=== PATIENT | female | born 1945 | race African-American/Black ===

== ENCOUNTER → 2016-04-24 | Outpatient (CLI) | payer MEDICARE ==
--- NOTE | 2016-04-25 09:49 | MM ---
Reason for exam: screening (asymptomatic). Last mammogram was performed 1 year ago. History: Patient is postmenopausal. Family history of premenopausal breast cancer in sister at age 19. Benign excisional biopsy of the left breast, January 17, 2001. Took estrogen for 10 years. Physical Findings: A clinical breast exam by your physician is recommended on an annual basis and results should be correlated with mammographic findings. MG 3D Screening Mammo W/Cad Bilateral CC and MLO view(s) were taken. Prior study comparison: April 12, 2015, left breast MG work up mamm w CAD LT. March 31, 2015, bilateral MG screening mammo w CAD. The breast tissue is heterogeneously dense. This may lower the sensitivity of mammography. Benign calcifications. There is no discrete abnormality. No significant changes when compared with prior studies. ASSESSMENT: Benign, BI-RAD 2 RECOMMENDATION: Routine screening mammogram of both breasts in 1 year.
== END | disposition home or self-care (01) ==
LOC: RADMAMWWP 07:56
PROVIDERS: ATTEND Family Medicine
DX: Z12.31 Encounter for screening mammogram for malignant neoplasm of breast (principal)
CPT/HCPCS: 77063; G0202

== ENCOUNTER → 2017-01-09 | Outpatient (CLI) | payer MEDICARE ==
[2017-01-09 10:05] LABS: EKG EKG PERFORMED
[2017-01-09 10:27] LABS: Basophils % (A) 1 %; CHCM 30.9; Eosinophils # (A) 0.1 k/uL (0-0.7); Eosinophils % (A) 1 %; HCT 39.8 % (34.0-46.0); HDW 2.21; Hypochromasia Slight; Luc # (Auto) 0.13; Luc % (Auto) 3; Lymphocytes # (A) 1.4 k/uL (1.0-4.8); Lymphocytes % (A) 38 %; MCH 31.9 pg (25.0-35.0); MCHC 32.7 g/dL (31.0-37.0); MCV 97.7 fL (80.0-100.0); Mean Platelet Volume 6.7; Monocytes # (A) 0.4 k/uL (0-1.0); Monocytes % (A) 10 %; Neutrophils # (A) 1.8 k/uL (1.3-7.7); Neutrophils % (A) 46 %; RBC 4.07 m/uL (3.80-5.40); RDW 13.4 % (11.5-15.5); WBC 3.8 k/uL (3.8-10.6); WBC (Perox) 3.97
[2017-01-09 10:34] LABS: Prothrombin Time 10.5 sec (9.0-12.0)
[2017-01-09 10:49] LABS: Anion Gap 9 mmol/L; Blood Urea Nitrogen 25 mg/dL (7-17); Calcium 9.3 mg/dL (8.4-10.2); Carbon Dioxide 25 mmol/L (22-30); Chloride 105 mmol/L (98-107); Glucose 77 mg/dL (74-99); Non-African American GFR(MDRD) >60 (>60 ml/min/1.73 sqM); Sodium 139 mmol/L (137-145)
== END | disposition home or self-care (01) ==
LOC: LABWHC1 09:08
PROVIDERS: ATTEND Family Medicine
DX: I10 Essential (primary) hypertension (principal)
CPT/HCPCS: 36415; 80048; 85025; 85610; 85730; 93005

== ENCOUNTER → 2017-02-26 | Outpatient (CLI) | payer MEDICARE ==
[2017-02-26 11:44] LABS: CHCM 30.9; HCT 39.3 % (34.0-46.0); HGB 12.1 gm/dL (11.4-16.0); MCHC 30.8 g/dL (31.0-37.0); MCV 94.3 fL (80.0-100.0); Mean Platelet Volume 7.4; RBC 4.17 m/uL (3.80-5.40); RDW 14.4 % (11.5-15.5)
[2017-02-26 11:52] LABS: Anion Gap 9 mmol/L; Blood Urea Nitrogen 26 mg/dL (7-17); Carbon Dioxide 25 mmol/L (22-30); Chloride 103 mmol/L (98-107); Non-African American GFR(MDRD) >60 (>60 ml/min/1.73 sqM); Potassium 4.5 mmol/L (3.5-5.1); Sodium 137 mmol/L (137-145)
== END | disposition home or self-care (01) ==
LOC: LABWHC1 11:11
PROVIDERS: ATTEND Internal Medicine Interventional Cardiology
DX: Z01.818 Encounter for other preprocedural examination (principal); I25.10 Atherosclerotic heart disease of native coronary artery without angina pectoris
CPT/HCPCS: 36415; 80051; 82565; 84520; 85027

== ENCOUNTER → 2017-05-27 | Outpatient (CLI) | payer MEDICARE ==
--- NOTE | 2017-05-28 12:10 | MM ---
Reason for exam: screening (asymptomatic). Last mammogram was performed 1 year and 1 month ago. History: Patient is postmenopausal. Family history of premenopausal breast cancer in sister at age 19. Benign excisional biopsy of the left breast, January 17, 2001. Took estrogen for 10 years. Physical Findings: A clinical breast exam by your physician is recommended on an annual basis and results should be correlated with mammographic findings. MG 3D Screening Mammo W/Cad Bilateral CC and MLO view(s) were taken. Prior study comparison: April 24, 2016, bilateral MG 3d screening mammo w/cad. April 12, 2015, left breast MG work up mamm w CAD LT. The breast tissue is heterogeneously dense. This may lower the sensitivity of mammography. There is a new 3mm mass in the right upper outer quadrant at middle depth and 3mm asymmetry just superior on the MLO view only. Benign calcifications bilaterally. No suspicious abnormality on the left. ASSESSMENT: Incomplete: need additional imaging evaluation, BI-RAD 0 RECOMMENDATION: Special view mammogram of the right breast. If lesion persists on supplemental views, image directed ultrasound is recommended. [facility] will attempt to contact patient to return for supplemental views and ultrasound if indicated.
== END | disposition home or self-care (01) ==
LOC: RADMAMWWP 09:03
PROVIDERS: ATTEND Family Medicine
DX: Z12.31 Encounter for screening mammogram for malignant neoplasm of breast (principal)
CPT/HCPCS: 77063; 77067

== ENCOUNTER → 2017-06-06 | Outpatient (CLI) | payer MEDICARE ==
--- NOTE | 2017-06-06 10:30 | MM ---
Reason for exam: additional evaluation requested from abnormal screening. Last mammogram was performed less than 1 month ago. History: Patient is postmenopausal. Family history of premenopausal breast cancer in sister at age 19. Benign excisional biopsy of the left breast, January 17, 2001. Took estrogen for 10 years. Physical Findings: Nurse Summary: There is a 1 x 1.5cm nodule in the right breast at 11 O'clock (nurse ts). MG 3D Work Up W/Cad RT CC, MLO, ML, spot compression CC, and spot compression MLO view(s) were taken of the right breast. Prior study comparison: May 27, 2017, bilateral MG 3d screening mammo w/cad. There are scattered fibroglandular densities. There is no dominant lesion. No significant new findings when compared with previous films. These results were verbally communicated with the patient and result sheet given to the patient on 06/06/17. ASSESSMENT: Incomplete: need additional imaging evaluation, BI-RAD 0 RECOMMENDATION: Ultrasound of the right breast. [facility] will attempt to contact patient to return for ultrasound.
--- NOTE | 2017-06-06 10:34 | USB ---
Reason for exam: additional evaluation requested from abnormal screening. History: Patient is postmenopausal. Family history of premenopausal breast cancer in sister at age 19. Benign excisional biopsy of the left breast, January 17, 2001. Took estrogen for 10 years. US Breast Workup Limited RT Right breast ultrasound demonstrates no cystic or solid lesion seen. These results were verbally communicated with the patient and result sheet given to the patient on 06/06/17. ASSESSMENT: Negative, BI-RAD 1 RECOMMENDATION: Routine screening mammogram of both breasts in 1 year. Manage patient on a clinical basis.
== END | disposition home or self-care (01) ==
LOC: RADMAMWWP 08:38
PROVIDERS: ATTEND Family Medicine
DX: R92.8 Other abnormal and inconclusive findings on diagnostic imaging of breast (principal)
CPT/HCPCS: 77065; 76642; G0279

== ENCOUNTER → 2017-07-12 | Outpatient (CLI) | payer MEDICARE ==
[2017-07-12 10:59] LABS: Cholesterol 197 mg/dL (<200); HDL Cholesterol 65 mg/dL (40-60); LDL Cholesterol,Calculated 118 mg/dL (0-99); Triglycerides 69 mg/dL (<150)
== END | disposition home or self-care (01) ==
LOC: LABWHC1 10:17
PROVIDERS: ATTEND Family Medicine
DX: E78.2 Mixed hyperlipidemia (principal)
CPT/HCPCS: 36415; 80061

== ENCOUNTER → 2018-01-27 | Outpatient (CLI) | payer MEDICARE ==
[2018-01-27 20:02] LABS: T4, Free (Free Thyroxine) 1.4 ng/dL (0.80-1.80)
== END | disposition home or self-care (01) ==
LOC: LABWHC1 11:47
PROVIDERS: ATTEND Internal Medicine Endocrinology, Diabetes & Metabolism
DX: E04.2 Nontoxic multinodular goiter (principal)
CPT/HCPCS: 36415; 84439; 84443

== ENCOUNTER → 2018-06-23 | Outpatient (CLI) | payer MEDICARE ==
--- NOTE | 2018-06-24 09:33 | MM ---
Reason for exam: screening (asymptomatic). Last mammogram was performed 1 year and 1 month ago. History: Patient is postmenopausal. Family history of premenopausal breast cancer in sister at age 19. Benign excisional biopsy of the left breast, January 17, 2001. Took estrogen for 10 years. Physical Findings: A clinical breast exam by your physician is recommended on an annual basis and results should be correlated with mammographic findings. MG 3D Screening Mammo W/Cad Bilateral CC and MLO view(s) were taken. Prior study comparison: June 06, 2017, right breast MG 3d work up w/cad RT. May 27, 2017, bilateral MG 3d screening mammo w/cad. The breast tissue is heterogeneously dense. This may lower the sensitivity of mammography. Stable benign calcifications. There is no discrete abnormality. No significant changes when compared with prior studies. ASSESSMENT: Benign, BI-RAD 2 RECOMMENDATION: Routine screening mammogram of both breasts in 1 year.
== END | disposition home or self-care (01) ==
LOC: RADMAMWWP 13:28
PROVIDERS: ATTEND Family Medicine
DX: Z12.31 Encounter for screening mammogram for malignant neoplasm of breast (principal)
CPT/HCPCS: 77063; 77067

== ENCOUNTER → 2018-08-08 | Outpatient (CLI) | payer MEDICARE ==
--- NOTE | 2018-08-08 15:18 | US ---
EXAMINATION TYPE: US thyroid st tissue head/neck DATE OF EXAM: 08/08/2018 COMPARISON: NONE CLINICAL HISTORY: E04.2 NON TOXIC MNG. GLAND SIZE: Right Lobe: 3.3 X 1.2 X 1.4 cm Overall Parenchyma: homogenous Left Lobe: 4.7 X 1.5 X 1.4 cm Overall Parenchyma: homogeneous Isthmus Thickness: 0.5 cm NODULES RIGHT: # of nodules measured on right: 1 1. 0.6 X 0.4 x 0.5 cm isoechoic solid nodule at the mid pole with well-defined margins. This nodul e is wider than tall and shows intranodular vascularity. No prior LEFT: # of nodules measured on left: 2 1. 1.8 X 1.1 x 1.3 cm anechoic cystic nodule at the upper pole with well-defined margins. This nod ule is wider than tall and shows intranodular vascularity. No prior 2. 1.0 X 0.7 x 1.0 cm anechoic cystic nodule at the lower pole with well-defined margins. This nodu le is wider than tall and shows no intranodular vascularity. No prior ISTHMUS: # of nodules measured in the isthmus: 0 Multiple subcentimeter nodules noted bilaterally. Bilateral neck scanned, no evidence of lymphadenopathy. IMPRESSION: Nonspecific thyroid nodularity. Need to biopsy should be made on a clinical basis.
== END | disposition home or self-care (01) ==
LOC: RADUSWWP 14:42
PROVIDERS: ATTEND Internal Medicine Endocrinology, Diabetes & Metabolism
DX: E04.2 Nontoxic multinodular goiter (principal)
CPT/HCPCS: 76536

== ENCOUNTER → 2019-11-19 | Outpatient (CLI) | payer MEDICARE ==
--- NOTE | 2019-11-19 16:00 | US ---
EXAMINATION TYPE: US venous doppler duplex LE LT DATE OF EXAM: 11/19/2019 3:50 PM COMPARISON: CLINICAL HISTORY: R22.40 Localized swelling, mass and lump. Patient states she fell. Pain. No hx DV T. On baby aspirin. SIDE PERFORMED: Left TECHNIQUE: The lower extremity deep venous system is examined utilizing real time linear array sonog vanessa with graded compression, doppler sonography and color-flow sonography. VESSELS IMAGED: External Iliac Vein (EIV) Common Femoral Vein Deep Femoral Vein Greater Saphenous Vein * Femoral Vein Popliteal Vein Small Saphenous Vein *- not visualized Proximal Calf Veins (* superficial vessels) Left Leg: Negative for DVT IMPRESSION: Grayscale, color doppler, spectral doppler imaging performed of the deep veins of the lo wer extremities. There is normal flow, compressibility, vascular waveforms.
== END | disposition home or self-care (01) ==
LOC: RADUSWWP 15:31
PROVIDERS: ATTEND Nurse Practitioner Family
DX: R22.42 Localized swelling, mass and lump, left lower limb (principal)

== ENCOUNTER → 2020-04-05 | Outpatient (CLI) | payer MEDICARE ==
--- NOTE | 2020-04-05 10:26 | US ---
EXAMINATION TYPE: US thyroid st tissue head/neck DATE OF EXAM: 04/05/2020 COMPARISON: 08/08/2018 CLINICAL HISTORY: E04.2 Nontoxic multinodular goiter. follow up thyroid nodules GLAND SIZE: Right Lobe: 4.4 x 1.5 x 1.8cm Overall Parenchyma: homogenous Left Lobe: 5.4 x 1.6 x 2.1cm Overall Parenchyma: homogeneous Isthmus Thickness: 0.4 cm NODULES RIGHT: # of nodules measured on right: 1 1. 0.7 X 0.5 x 0.7 cm mid pole mixed cystic and solid, isoechoic nodule, which is wider than tall, with smooth margins, with echogenic foci. Prior size: 0.6 x 0.4 x 0.5 cm LEFT: # of nodules measured on left: 2 1. 2.2 X 1.1 x 1.5 cm upper pole cystic , anechoic nodule, which is wider than tall, with smooth ma rgins, with echogenic foci. Prior size: 1.8 x 1.1 x 1.3 cm 2. 1.1 X 0.8 x 1.1 cm lower pole cystic, anechoic nodule, which is wider than tall, with smooth mar gins, without echogenic foci. Prior size: 1.0 x 0.7 x 1.0 cm ISTHMUS: # of nodules measured in the isthmus: 0 multiple subcentimeter nodules noted bilaterally Bilateral neck scanned, no evidence of lymphadenopathy. IMPRESSION: 1. Slight enlargement of a thyroid cyst. 2. Subcentimeter in larger nodule are stable 2017 ACR TI-RADS LEVEL: 2 *Highest TI-RADS level nodule reported
== END | disposition home or self-care (01) ==
LOC: RADUSWWP 09:41
PROVIDERS: ATTEND Internal Medicine Endocrinology, Diabetes & Metabolism
DX: E04.2 Nontoxic multinodular goiter (principal)
CPT/HCPCS: 76536

== ENCOUNTER 2020-06-25 16:11 | Emergency (ER) | payer MEDICARE ==
[2020-06-25 17:23] LABS: Appearance,Urine Clear (Clear); Bilirubin,Urine Negative (Negative); Blood,Urine Trace (Negative); Color,Urine Yellow; Glucose,Urine (UA) Negative (Negative); Ketones,Urine Negative (Negative); Leukocyte Esterase,Urine Negative (Negative); Nitrite,Urine Negative (Negative); PH, Urine 6.5 (5.0-8.0); Protein,Urine Negative (Negative); RBC,Urine 2 /hpf (0-5); Specific Gravity,Urine 1.012 (1.001-1.035); Urobilinogen,Urine <2.0 mg/dL (<2.0)
--- NOTE | 2020-06-25 17:45 | ED ---
Back Pain HPI - General Chief Complaint: Back Pain/Injury Stated Complaint: Back Pain Time Seen by Provider: 06/25/20 16:49 Source: patient Limitations: no limitations - History of Present Illness Initial Comments: Patient is a 75-year-old female presenting to the emergency Department with complaints of some bilateral lower back discomfort for the past 2 weeks. She did go to her PCP for this and they thought that it could be just R of shingles and she was describing as burning, started her on Lyrica without improvement. She states she does take Tylenol for her pain which does seem to help. She is also been doing some heat and cold alternating which also helps. She states she feels the best when she is up and moving around. She denies any falls or trauma, no fevers or chills. She denies any dysuria. She denies any previous back surgeries or injuries. She denies any numbness and tingling into her legs, no pain radiation. She has no further complaints at this time. Upon arrival to the ER, her vitals are stable. - Related Data Home Medications Medication Instructions Recorded Confirmed Multivit-Min/FA/Lycopene/Lut 1 tab PO DAILY 09/27/14 06/25/20 [Centrum Silver Tablet] hydrALAZINE HCL [Apresoline] 25 mg PO BID 03/26/17 06/25/20 Acetaminophen Tab [Tylenol Tab] 500 mg PO Q6H PRN 06/25/20 06/25/20 Calcium Carbonate [Calcium] 1,200 mg PO DAILY 06/25/20 06/25/20 Candesartan Cilexetil [Atacand] 32 mg PO DAILY 06/25/20 06/25/20 Cholecalciferol [Vitamin D3 (10 10 mcg PO DAILY 06/25/20 06/25/20 Mcg = 400 Iu)] Pregabalin [Lyrica] 50 mg PO TID 06/25/20 06/25/20 Verapamil HCl [Verapamil ER] 120 mg PO HS 06/25/20 06/25/20 hydroCHLOROthiazide [Hydrodiuril] 25 mg PO DAILY 06/25/20 06/25/20 Allergies Allergy/AdvReac Type Severity Reaction Status Date / Time hydrocodone bitartrate Allergy Nausea & Verified 06/25/20 17:41 [From [place]] Vomiting latex Allergy Rash/Hives Verified 06/25/20 17:41 meloxicam Allergy Nausea Verified 06/25/20 17:41 nickel Allergy Unknown Verified 06/25/20 17:41 Review of Systems ROS Statement: Those systems with pertinent positive or pertinent negative responses have been documented in the HPI. ROS Other: All systems not noted in ROS Statement are negative. Past Medical History Past Medical History: Hypertension History of Any Multi-Drug Resistant Organisms: None Reported Past Surgical History: Hysterectomy, Joint Replacement, Orthopedic Surgery Additional Past Surgical History / Comment(s): jakob knee replacement, arthroscopic lt shoulder; cataracts Past Anesthesia/Blood Transfusion Reactions: Motion Sickness Past Psychological History: No Psychological Hx Reported Smoking Status: Never smoker Past Alcohol Use History: None Reported Past Drug Use History: None Reported - Past Family History Father Family Medical History: CVA/TIA, Myocardial Infarction ([place]) Mother Family Medical History: No Reported History General Exam - General Exam Comments Initial Comments: GENERAL: Patient is well-developed and well-nourished. Patient is nontoxic and in no acute distress. HEAD: Atraumatic, normocephalic. EYES: Pupils equal round and reactive to light, extraocular movements intact, sclera a nicteric, conjunctiva are normal. Eyelids were unremarkable. ENT: TMs normal, nares patent, oropharynx clear without exudates. Moist mucous membranes. NECK: Normal range of motion, supple without lymphadenopathy or JVD. LUNGS: Unlabored respirations. Breath sounds clear to auscultation bilaterally and equal. No wheezes rales or rhonchi. HEART: Regular rate and rhythm without murmurs, rubs or gallops. ABDOMEN: Soft, nontender, normoactive bowel sounds. No guarding, no rebound. No masses appreciated. : Deferred MUSCULOSKELETAL: Normal extremities with adequate strength and normal range of motion, no pitting or edema. No clubbing or cyanosis. Patient has full trunk range of motion, no pain with palpation of the lower back. NEUROLOGICAL: Patient is alert and oriented x 3. Motor and sensory are also intact. Cranial nerves II through XII grossly intact. Symmetrical smile. Normal speech, normal gait. PSYCH: Normal mood, normal affect. SKIN: Warm, Dry, normal turgor, no rashes or lesions noted. Limitations: no limitations Course Vital Signs 06/25/20 06/25/20 16:13 18:18 Temperature 98.8 F 98.1 F Pulse Rate 97 88 Respiratory 17 18 Rate Blood Pressure 196/85 168/82 O2 Sat by Pulse 100 99 Oximetry Medical Decision Making - Medical Decision Making Patient 75-year-old female with complaints of low back discomfort for the past 2 weeks. She describes it as a burning sensation, no falls or trauma. Her exam is unremarkable, full trunk range of motion no pain to palpation. She has no rashes to indicate shingles. I did check her urine which is normal, no signs of infection. I discussed with patient that she can continue with her Tylenol, heat and cold packs. Is most likely a muscle strain. Recommended following up with her doctor, she does have an appointment with them next week. Patient is stable for discharge. Patient is in agreement with this plan of care. Return parameters were discussed with the patient and they verbalized understanding. Case discussed with Dr. Au. - Lab Data Lab Results 06/25/20 Range/Units 17:14 Urine Color Yellow Urine Appearance Clear (Clear) Urine pH 6.5 (5.0-8.0) Ur Specific [place] 1.012 (1.001-1.035) Urine Protein Negative (Negative) Urine Glucose (UA) Negative (Negative) Urine Ketones Negative (Negative) Urine Blood Trace H (Negative) Urine Nitrite Negative (Negative) Urine Bilirubin Negative (Negative) Urine Urobilinogen <2.0 (<2.0) mg/dL Ur Leukocyte Esterase Negative (Negative) Urine RBC 2 (0-5) /hpf Disposition Clinical Impression: Strain of lumbar region Disposition: HOME SELF-CARE Condition: Stable Instructions (If sedation given, give patient instructions): Acute Low Back Pain (ED) Additional Instructions: Please return to the Emergency Department if symptoms worsen or any other concerns. Recommend taking Tylenol for discomfort, heat packs to the area, gentle stretching. Please follow-up with your regular doctor symptoms persist. Is patient prescribed a controlled substance at d/c from ED?: No Referrals: Davion Clement DO [Primary Care Provider] - 1-2 days
[2020-06-25 18:20] VITALS: BP 168/82; PULSE 88; RESP 18; TEMP 98.1
== END 2020-06-25 18:19 | disposition home or self-care (01) ==
LOC: EC 16:11
DX: S39.012A Strain of muscle, fascia and tendon of lower back, initial encounter (principal); I10 Essential (primary) hypertension; Z79.899 Other long term (current) drug therapy; X58.XXXA Exposure to other specified factors, initial encounter
CPT/HCPCS: 81001; 99283

== ENCOUNTER → 2020-08-30 | Outpatient (CLI) | payer MEDICARE ==
--- NOTE | 2020-08-30 13:38 | XR ---
EXAMINATION TYPE: XR lumbar spine 2 or 3V DATE OF EXAM: 08/30/2020 CLINICAL HISTORY: Burning low back pain without injury TECHNIQUE: Frontal, lateral, and oblique images of the lumbar spine are obtained. COMPARISON: 11/26/2012 FINDINGS: 5 non rib bearing lumbar type vertebral bodies. Sacroiliac joints are intact. There is main tenance of the normal lumbar lordosis. There is no loss of vertebral body height or significant narro wing of the intervertebral disc spaces. There is mild grade 1 anterolisthesis of L3 on L4. Mild degen erative changes of the facets. Dextrocurvature of the lumbar spine is mild. IMPRESSION: 1. No acute fracture or dislocation lumbar spine. 2. Mild grade 1 anterolisthesis of L3 on L4.
== END | disposition home or self-care (01) ==
LOC: RADXRMAIN 10:14
PROVIDERS: ATTEND Family Medicine
DX: M43.16 Spondylolisthesis, lumbar region (principal)
CPT/HCPCS: 72100

== ENCOUNTER 2021-05-09 07:54 | Observation (INO) | payer MEDICARE ==
[2021-05-09] MEDS ORDERED: SODIUM CHLORIDE 0.9% 1,000 ML IV STA (08:20)
--- NOTE | 2021-05-09 08:20 | ED ---
General Adult HPI <Emir Rubi - Last Filed: 05/09/21 10:15> - General Source: patient, RN notes reviewed Mode of arrival: wheelchair Limitations: no limitations <Chilango sHieh - Last Filed: 05/09/21 10:39> - General Chief complaint: Dizziness Stated complaint: dizziness Time Seen by Provider: 05/09/21 08:04 - History of Present Illness Initial comments: 76-year-old female with a past medical history of hypertension presents to the emergency of dizziness. Patient states 4 days ago she had some dizziness and felt like the room was spinning. Over the weekend it resolved but it seemed to return yesterday morning. Patient states she vomited after eating her breakfast yesterday. Patient states the dizziness kind of continued throughout the day and today she was scared to eat her breakfast. She denies headaches. She states the symptoms do worsen when she turns her head.Patient has no other complaints at this time including shortness of breath, chest pain, abdominal pain, nausea or vomiting, headache, or visual changes. (Chilango Hsieh) - Related Data Home Medications Medication Instructions Recorded Confirmed Multivit-Min/FA/Lycopene/Lut 1 tab PO W/LUNCH 09/27/14 05/09/21 [Centrum Silver Tablet] hydrALAZINE HCL [Apresoline] 25 mg PO BID 03/26/17 05/09/21 Calcium Carbonate [Calcium] 1,200 mg PO W/LUNCH 06/25/20 05/09/21 Candesartan Cilexetil [Atacand] 32 mg PO DAILY 06/25/20 05/09/21 Cholecalciferol [Vitamin D3 (10 10 mcg PO W/LUNCH 06/25/20 05/09/21 Mcg = 400 Iu)] Verapamil HCl [Verapamil ER] 120 mg PO HS 06/25/20 05/09/21 hydroCHLOROthiazide [Hydrodiuril] 25 mg PO DAILY 06/25/20 05/09/21 Allergies Allergy/AdvReac Type Severity Reaction Status Date / Time latex Allergy Rash/Hives Verified 05/09/21 09:19 nickel Allergy Unknown Verified 05/09/21 09:19 hydrocodone bitartrate AdvReac Nausea & Verified 05/09/21 09:19 [From [place]] Vomiting meloxicam AdvReac Nausea & Verified 05/09/21 09:19 Vomiting Review of Systems ROS Other: All systems not noted in ROS Statement are negative. <Emir Rubi - Last Filed: 05/09/21 10:15> ROS Other: All systems not noted in ROS Statement are negative. <Chilango Hsieh - Last Filed: 05/09/21 10:39> ROS Statement: Those systems with pertinent positive or pertinent negative responses have been documented in the HPI. Past Medical History Past Medical History: Hypertension History of Any Multi-Drug Resistant Organisms: None Reported Past Surgical History: Hysterectomy, Joint Replacement, Orthopedic Surgery Additional Past Surgical History / Comment(s): jakob knee replacement, arthroscopic lt shoulder; cataracts Past Anesthesia/Blood Transfusion Reactions: Motion Sickness Past Psychological History: No Psychological Hx Reported Smoking Status: Never smoker Past Alcohol Use History: None Reported Past Drug Use History: None Reported - Past Family History Father Family Medical History: CVA/TIA, Myocardial Infarction ([place]) Mother Family Medical History: No Reported History <Chilango Hsieh - Last Filed: 05/09/21 10:39> General Exam Limitations: no limitations General appearance: alert, in no apparent distress Head exam: Present: atraumatic Eye exam: Present: normal appearance, PERRL, EOMI. Absent: scleral icterus, conjunctival injection ENT exam: Present: normal exam, mucous membranes moist Neck exam: Present: normal inspection, full ROM. Absent: tenderness Respiratory exam: Present: normal lung sounds bilaterally. Absent: respiratory distress, wheezes Cardiovascular Exam: Present: regular rate, normal rhythm, normal heart sounds GI/Abdominal exam: Present: soft, normal bowel sounds. Absent: distended, tenderness Neurological exam: Present: alert, oriented X3, other (GCS 15) Expanded Patient oriented to: Present: person, place, time Speech: Present: fluid speech Cranial nerves: EOM's Intact: Normal, Nystagmus: Normal, Facial Sensation: Normal Cerebellar function: Finger to Nose: Normal Upper motor neuron: Pronator Drift: Normal Sensory exam: Upper Extremity Light Touch: Normal, Upper Extremity Pin Prick: Normal, Lower Extremity Light Touch: Normal, Lower Extremity Pin Prick: Normal Motor strength exam: RUE: 5, LUE: 5, RLE: 5, LLE: 5 <Chilango Hsieh P - Last Filed: 05/09/21 10:39> Course <Emir Rubi - Last Filed: 05/09/21 10:15> Vital Signs 05/09/21 05/09/21 08:00 09:59 Temperature 98.2 F Pulse Rate 83 78 Respiratory 18 18 Rate Blood Pressure 183/76 184/79 O2 Sat by Pulse 98 97 Oximetry - Reevaluation(s) Reevaluation #1: 05/09/21 10:16 PA supervision: I proceeded with a [id number] evaluation the patient. Patient did complain of acid dizziness 4 days ago no headaches no blurry vision no focal loss of function is upper or lower extremities. No real prior episodes of the this type with problem. Neurological exam revealed reproducible dizziness with upright movement and attempted ambulation. Patient was awake alert oriented 3 no focal neurological deficits noted. Neck supple for range of motion no stridor JVD or bruits chest lungs are clear heart was regular with no evidence of any murmurs at this time peripheral exam revealed full range of motion no deficits noted. Patient has failed thus far the initial treatment with no resolution of the symptoms. CAT scan was negative for acute findings patient will be admitted with neurological consultation. I do agree with the assessment and plan (Emir Rubi) EKG Findings - EKG Comments: EKG Findings:: Normal sinus rhythm, ventricular rate 68, WA interval 102, QTC 307 <Chilango Hsieh - Last Filed: 05/09/21 10:39> Medical Decision Making - Lab Data Result diagrams: 05/09/21 08:35 05/09/21 08:35 <Emir Rubi - Last Filed: 05/09/21 10:15> - Lab Data Result diagrams: 05/09/21 08:35 05/09/21 08:35 <Chilango Hsieh - Last Filed: 05/09/21 10:39> - Medical Decision Making Vitals are stable. Patient has no focal neurologic deficits but is ambulatory with assistance 2 because of dizziness. Patient is otherwise well appearing. CBC and CMP are unremarkable. Chest x-ray shows no acute process. CT brain shows degenerative and minimal nonspecific white matter changes likely remote ischemia without any acute process. EKG showed a normal sinus rhythm. Patient continues to be dizzy despite Antivert and Valium. Given she lives at home patient will be admitted for intractable dizziness and neurology evaluation. (Chilango Hsieh) - Lab Data Lab Results 05/09/21 05/09/21 Range/Units 08:35 08:35 WBC 4.4 (3.8-10.6) k/uL RBC 4.16 (3.80-5.40) m/uL Hgb 12.7 (11.4-16.0) gm/dL Hct 38.6 (34.0-46.0) % MCV 92.9 (80.0-100.0) fL MCH 30.6 (25.0-35.0) pg MCHC 33.0 (31.0-37.0) g/dL RDW 13.1 (11.5-15.5) % Plt Count 310 (150-450) k/uL MPV 7.0 Neutrophils % 47 % Lymphocytes % 38 % Monocytes % 10 % Eosinophils % 2 % Basophils % 1 % Neutrophils # 2.1 (1.3-7.7) k/uL Lymphocytes # 1.7 (1.0-4.8) k/uL Monocytes # 0.5 (0-1.0) k/uL Eosinophils # 0.1 (0-0.7) k/uL Basophils # 0.0 (0-0.2) k/uL Sodium 134 L (137-145) mmol/L Potassium 4.0 (3.5-5.1) mmol/L Chloride 99 (98-107) mmol/L Carbon Dioxide 28 (22-30) mmol/L Anion Gap 7 mmol/L BUN 20 H (7-17) mg/dL Creatinine 0.78 (0.52-1.04) mg/dL Est GFR (CKD-EPI)AfAm 85 (>60 ml/min/1.73 sqM) Est GFR (CKD-EPI)NonAf 73 (>60 ml/min/1.73 sqM) Glucose 101 H (74-99) mg/dL Calcium 9.7 (8.4-10.2) mg/dL Total Bilirubin 0.5 (0.2-1.3) mg/dL AST 26 (14-36) U/L ALT 11 (4-34) U/L Alkaline Phosphatase 72 (38-126) U/L Total Protein 7.5 (6.3-8.2) g/dL Albumin 4.0 (3.5-5.0) g/dL Disposition <Emir Rubi - Last Filed: 05/09/21 10:15> Is patient prescribed a controlled substance at d/c from ED?: No Time of Disposition: 10:39 <Chilango Hsieh - Last Filed: 05/09/21 10:39> Clinical Impression: Dizziness Disposition: ADMITTED IP TO THIS HOSP Referrals: Davion Clement DO [Primary Care Provider] - 1-2 days
[2021-05-09] MEDS ORDERED: MECLIZINE 12.5 MG TAB PO STA (08:21)
[2021-05-09 08:44] LABS: Basophils % (A) 1 %; Eosinophils # (A) 0.1 k/uL (0-0.7); Eosinophils % (A) 2 %; HCT 38.6 % (34.0-46.0); HGB 12.7 gm/dL (11.4-16.0); Lymphocytes # (A) 1.7 k/uL (1.0-4.8); Lymphocytes % (A) 38 %; MCH 30.6 pg (25.0-35.0); MCV 92.9 fL (80.0-100.0); Monocytes # (A) 0.5 k/uL (0-1.0); Monocytes % (A) 10 %; Neutrophils # (A) 2.1 k/uL (1.3-7.7); Neutrophils % (A) 47 %; Platelet Count 310 k/uL (150-450); RBC 4.16 m/uL (3.80-5.40); RDW 13.1 % (11.5-15.5); WBC 4.4 k/uL (3.8-10.6)
[2021-05-09 08:57] LABS: Calcium 9.7 mg/dL (8.4-10.2); Total Bilirubin 0.5 mg/dL (0.2-1.3); Total Protein 7.5 g/dL (6.3-8.2)
--- NOTE | 2021-05-09 09:04 | CT ---
EXAMINATION TYPE: CT brain wo con DATE OF EXAM: 05/09/2021 COMPARISON: None HISTORY: vertigo CT DLP: 984 mGycm Automated exposure control for dose reduction was used. FINDINGS: Mild generalized degenerative change. No midline shift or mass effect. No acute intracranial hemorrha ge. Calvarium intact. Orbits symmetric. Faint low attenuation in the white matter. Single rounded les ion frontal bone likely benign and too small to characterize. IMPRESSION: DEGENERATIVE AND MINIMAL NONSPECIFIC WHITE MATTER CHANGES MOST TYPICAL OF REMOTE ISCHEMIA. CORRELATE WITH MRI CLINICALLY WARRANTED.
--- NOTE | 2021-05-09 09:15 | XR ---
EXAMINATION TYPE: XR chest 2V DATE OF EXAM: 05/09/2021 COMPARISON: Chest x-ray April 11, 2017 HISTORY: Dizziness. TECHNIQUE: Frontal and lateral views of the chest are obtained. FINDINGS: There is chronic emphysematous change without suspicious focal air space opacity, pleural effusion, or pneumothorax seen. Cardiomegaly is redemonstrated. The osseous structures are deminera lized. Degenerative change bilateral glenohumeral joints is present. IMPRESSION: Cardiomegaly and chronic emphysematous change without acute pulmonary process.
[2021-05-09] MEDS ORDERED: DIAZEPAM 5 MG/ML 2 ML INJ IVP STA (09:50)
[2021-05-09] MEDS ORDERED: NALOXONE 0.4 MG/ML 1 ML VIAL IV PRN (10:40)
[2021-05-09] MEDS ORDERED: MECLIZINE 25 MG TAB PO PRN (12:58)
--- NOTE | 2021-05-09 13:01 | P.HPIM ---
History of Present Illness Patient is a pleasant 76-year-old female came in with four-day history of vertigo, room spinning around, worse with movement of the head and from sitting to laying down position. She had nausea as well as vomiting. Patient denied any hearing loss may have mild tinnitus in the left ear. Denied any fullness in the ears. Patient denied any weakness or tingling numbness. REVIEW OF SYSTEMS: CONSTITUTIONAL: No fever, no malaise, no fatigue. HEENT: No recent visual problems or hearing problems. Denied any sore throat. CARDIOVASCULAR: No chest pain, orthopnea, PND, no palpitations, no syncope. PULMONARY: No shortness of breath, no cough, no hemoptysis. GASTROINTESTINAL: No diarrhea, no nausea, no vomiting, no abdominal pain. NEUROLOGICAL: No headaches, no weakness, no numbness. HEMATOLOGICAL: Denies any bleeding or petechiae. GENITOURINARY: Denies any burning micturition, frequency, or urgency. MUSCULOSKELETAL/RHEUMATOLOGICAL: Denies any joint pain, swelling, or any muscle pain. ENDOCRINE: Denies any polyuria or polydipsia. The rest of the 14-point review of systems is negative. PHYSICAL EXAMINATION: GENERAL: The patient is alert and oriented x3, not in any acute distress. Well developed, well nourished. HEENT: Pupils are round and equally reacting to light. EOMI. No scleral icterus. No conjunctival pallor. Normocephalic, atraumatic. No pharyngeal erythema. No thyromegaly. CARDIOVASCULAR: S1 and S2 present. No murmurs, rubs, or gallops. PULMONARY: Chest is clear to auscultation, no wheezing or crackles. ABDOMEN: Soft, nontender, nondistended, normoactive bowel sounds. No palpable organomegaly. MUSCULOSKELETAL: No joint swelling or deformity. EXTREMITIES: No cyanosis, clubbing, or pedal edema. NEUROLOGICAL: Gross neurological examination did not reveal any focal deficits. [place] Halspike maneuver is positive to follow with vertical nystagmus. SKIN: No rashes. Assessment and plan -Vertigo: Appears to have benign push vertigo. Hopefully otolith referred him and will will help her patient is on meclizine neurology evaluated the patient CT of the head noted and reviewed, neurologist to communicate carotid Doppler -Hypertension patient will be resumed on home medications patient has mild hyponatremia secondary to hydrochlorothiazide because of which I'll discontinue had a thiazide Lasix will be added as Lasix affect on sodium is less than hydrochlorothiazide. - mild hyponatremia: Secondary to diuretics change in diuretics as mentioned above. DVT prophylaxis: Lovenox Past Medical History Past Medical History: Hypertension History of Any Multi-Drug Resistant Organisms: None Reported Past Surgical History: Hysterectomy, Joint Replacement, Orthopedic Surgery Additional Past Surgical History / Comment(s): jakob knee replacement, arthroscopic lt shoulder; cataracts Past Anesthesia/Blood Transfusion Reactions: Motion Sickness Past Psychological History: No Psychological Hx Reported Smoking Status: Never smoker Past Alcohol Use History: None Reported Past Drug Use History: None Reported - Past Family History Father Family Medical History: CVA/TIA, Myocardial Infarction ([place]) Mother Family Medical History: No Reported History Medications and Allergies Home Medications Medication Instructions Recorded Confirmed Type Multivit-Min/FA/Lycopene/Lut 1 tab PO W/LUNCH 09/27/14 05/09/21 History [Centrum Silver Tablet] hydrALAZINE HCL [Apresoline] 25 mg PO BID 03/26/17 05/09/21 History Calcium Carbonate [Calcium] 1,200 mg PO W/LUNCH 06/25/20 05/09/21 History Candesartan Cilexetil [Atacand] 32 mg PO DAILY 06/25/20 05/09/21 History Cholecalciferol [Vitamin D3 (10 10 mcg PO W/LUNCH 06/25/20 05/09/21 History Mcg = 400 Iu)] Verapamil HCl [Verapamil ER] 120 mg PO HS 06/25/20 05/09/21 History hydroCHLOROthiazide [Hydrodiuril] 25 mg PO DAILY 06/25/20 05/09/21 History Allergies Allergy/AdvReac Type Severity Reaction Status Date / Time latex Allergy Rash/Hives Verified 05/09/21 09:19 nickel Allergy Unknown Verified 05/09/21 09:19 hydrocodone bitartrate AdvReac Nausea & Verified 05/09/21 09:19 [From [place]] Vomiting meloxicam AdvReac Nausea & Verified 05/09/21 09:19 Vomiting Physical Exam Vitals: Vital Signs Temp Pulse Resp BP Pulse Ox 05/09/21 10:43 64 16 161/86 97 05/09/21 09:59 78 18 184/79 97 05/09/21 08:00 98.2 F 83 18 183/76 98 Intake and Output 05/08/21 05/09/21 05/09/21 22:59 06:59 14:59 Other: Weight 84.368 kg Results CBC & Chem 7: 05/09/21 08:35 05/09/21 08:35 Labs: Abnormal Lab Results - Last 24 Hours (Table) 05/09/21 Range/Units 08:35 Sodium 134 L (137-145) mmol/L BUN 20 H (7-17) mg/dL Glucose 101 H (74-99) mg/dL
--- NOTE | 2021-05-09 13:15 | US ---
EXAMINATION TYPE: US carotid duplex BILAT DATE OF EXAM: 05/09/2021 COMPARISON: NONE CLINICAL HISTORY: Vertigo. EXAM MEASUREMENTS: RIGHT: Peak Systolic Velocity (PSV) cm/sec ----- Right CCA: 72.3 ----- Right ICA: 75.7 ----- Right ECA: 85.6 ICA/CCA ratio: 1.0 RIGHT: End Diastole cm/sec ----- Right CCA: 10.4 ----- Right ICA: 10.9 ----- Right ECA: 6.5 LEFT: Peak Systolic Velocity (PSV) cm/sec ----- Left CCA: 71.3 ----- Left ICA: 111.3 ----- Left ECA: 143.6 ICA/CCA ratio: 1.6 LEFT: End Diastole cm/sec ----- Left CCA: 11.8 ----- Left ICA: 24.1 ----- Left ECA: 0.0 VERTEBRALS (direction of flow): Right Vertebral: Antegrade Left Vertebral: Antegrade Rhythm: Normal Grayscale, color Doppler, spectral Doppler imaging performed of the carotid arteries. Waveform analys is does not show significant stenosis. No significant stenosis seen. IMPRESSION: No hemodynamic significant stenosis of the proximal internal carotid arteries by Doppler criteria, an indirect measurement of carotid stenosis Criteria for Assigning % of Stenosis / Diameter reduction (Estimation based on the indirect measurements of the internal carotid artery velocities (ICA PSV). 1. Normal (no stenosis)=ICA PSV < 125 cm/s: ratio < 2.0: ICA EDV<40 cm/s. 2. Less than 50% stenosis=ICA PSV < 125 cm/s: ratio < 2.0: ICA EDV<40 cm/s. 3. 50 to 69% stenosis=ICA PSV of 125 to 230 cm/s: ration 2.0 ? 4.0: ICA EDV 40-100 cm/s. 4. Greater than 70% stenosis to near occlusion= ICA PSV > 230 cm/s: ratio > 4.0: ICA EDV > 100 cm/s. 5. Near occlusion= ICA PSV velocities may be low or undetectable: variable ratio and ICA EDV. 6. Total occlusion=unable to detect flow.
[2021-05-09] MEDS ORDERED: MECLIZINE 25 MG TAB PO SCH (14:00)
[2021-05-09] MEDS: SODIUM CHLORIDE 0.9% 1,000 ML IV SCH (16:21)
--- NOTE | 2021-05-09 18:03 | P.CNNES ---
History of Present Illness Consult date: 05/09/21 Requesting physician: Chilango Hsieh Reason for Consult: Dizziness History of Present Illness: Patient is a 76-year-old female came to the hospital today at 7:54 AM for evaluation of vertigo. Patient states that her symptoms started on Saturday morning 07/01/2021, when she woke up and the room was going around and around in circles. Saturday it did the same thing all day. Saturday she laid most of the day. On Saturday, which is yesterday she felt slightly better. This morning she had her breakfast, but she threw up. She took her blood pressure medication and threw up. Therefore for persistent dizziness and nausea vomiting, she decided to come to the ER. Patient states that she had similar, but milder episodes in the past, but nothing like this. She has had about 2 similar spells in the past couple years, but milder in degree. She does have some headache, but attributes to the high blood pressure. Patient denies any upper respiratory infection. Denies any numbness tingling, focal weakness, slurred speech, facial droop any stroke symptoms or diplopia. Patient does have tinnitus, when she lays down, once in a while, mostly involving the left ear. Denies any hearing loss. Patient states that the dizziness gets worse when she looks up, bends down or moves her head [id number]. Patient states that she is fully vaccinated in the last posterior she received was on 03/01/2021. Vital signs arrival blood pressure 183/76, pulse rate 83, temperature 98.2. Patient's blood pressures still is up 188/80. Patient's blood test shows normal CBC, sodium 134 potassium 4.0, normal renal functions. Hepatic panel is normal, TSH normal, Brito virus PCR negative. Computed tomography scan of head showed degenerative and minimal nonspecific white matter changes most typical of remote ischemia. Correlate with MRI as clinically warranted. I personally reviewed computed tomography scan of the head and agree with the findings. Visualized paranasal sinuses and external auditory canals are clear. EKG shows normal sinus rhythm. Chest x-ray showed cardiomegaly and chronic emphysematous change without acute pulmonary process. Patient's home medication includes multivitamins, hydralazine, vitamin D, calcium, hydrochlorothiazide 25 mg, verapamil ER 120 mg and Atacand 32 mg. Patient does take aspirin 81 mg daily on a regular basis for last 4 years. Patient has history of hypertension for 20 years denies diabetes. No history of tobacco or alcohol use. Review of Systems As mentioned above in detail. All other 14 point review of systems reviewed and unremarkable. Denies any chest pain or abdominal pain. Denies any double vision. Past Medical History Past Medical History: Hypertension History of Any Multi-Drug Resistant Organisms: None Reported Past Surgical History: Hysterectomy, Joint Replacement, Orthopedic Surgery Additional Past Surgical History / Comment(s): jakob knee replacement, arthroscopic lt shoulder; cataracts Past Anesthesia/Blood Transfusion Reactions: Motion Sickness Past Psychological History: No Psychological Hx Reported Smoking Status: Never smoker Past Alcohol Use History: None Reported Past Drug Use History: None Reported - Past Family History Father Family Medical History: CVA/TIA, Myocardial Infarction ([place]) Mother Family Medical History: No Reported History Medications and Allergies Home Medications Medication Instructions Recorded Confirmed Type Multivit-Min/FA/Lycopene/Lut 1 tab PO W/LUNCH 09/27/14 05/09/21 History [Centrum Silver Tablet] hydrALAZINE HCL [Apresoline] 25 mg PO BID 03/26/17 05/09/21 History Calcium Carbonate [Calcium] 1,200 mg PO W/LUNCH 06/25/20 05/09/21 History Candesartan Cilexetil [Atacand] 32 mg PO DAILY 06/25/20 05/09/21 History Cholecalciferol [Vitamin D3 (10 10 mcg PO W/LUNCH 06/25/20 05/09/21 History Mcg = 400 Iu)] Verapamil HCl [Verapamil ER] 120 mg PO HS 06/25/20 05/09/21 History hydroCHLOROthiazide [Hydrodiuril] 25 mg PO DAILY 06/25/20 05/09/21 History Allergies Allergy/AdvReac Type Severity Reaction Status Date / Time latex Allergy Rash/Hives Verified 05/09/21 09:19 nickel Allergy Unknown Verified 05/09/21 09:19 hydrocodone bitartrate AdvReac Nausea & Verified 05/09/21 09:19 [From [place]] Vomiting meloxicam AdvReac Nausea & Verified 05/09/21 09:19 Vomiting Physical Examination - Vital Signs Vital Signs: Vital Signs Temp Pulse Resp BP Pulse Ox 05/09/21 10:43 64 16 161/86 97 05/09/21 09:59 78 18 184/79 97 05/09/21 08:00 98.2 F 83 18 183/76 98 Intake and Output 05/08/21 05/09/21 05/09/21 22:59 06:59 14:59 Other: Weight 84.368 kg Patient is an elderly Afro-[place]ian female, very pleasant, in no acute distress. Patient is alert awake oriented to time place and person. Speech and language functions are normal. Attention, concentration and fund of knowledge is adequate. Patient can name and repeat very well. No aphasia or dysarthria. On cranial examination, pupils are surgical, the left pupil is eccentric inferiorly and is irregular. Both are reactive, but the right is better reactive than the left. She has history of cataract surgery bilaterally. Her visual pierce are full on confrontation, with no neglect on double simultaneous stimulation. Her extraocular muscles are intact with no nystagmus. Face is symmetric, tongue protrudes to the midline. Palatal elevation and sensation normal, hearing and shoulder shrug normal, facial sensation normal. Shoulder shrug normal. On muscle strength testing, there is no pronator drift and the strength is nor mal in arms and legs distally and proximally. Deep tendon reflexes are symmetric, 2 in the upper limbs, 2 at the knees, 1 at ankles and plantars are downgoing bilaterally. Sensory to touch is equal with no neglect on double simultaneous stimulation. Cerebellar function showed no ataxia for [id number] testing, although patient is slightly tremulous bilaterally. No dysdiadochokinesia. Tone and bulk of muscles normal. Gait deferred. On general examination, there is no carotid bruit or murmur, S1-S2 audible. Abdomen is soft nontender. No organomegaly. Bowel sounds present. Chest is clear. Peripheral pulses are present. No edema. Results - Laboratory Findings CBC and BMP: 05/09/21 08:35 05/09/21 08:35 Abnormal Lab Findings: Abnormal Labs 05/09/21 08:35 Sodium 134 L BUN 20 H Glucose 101 H Assessment and Plan Assessment: * Vertigo, probably labyrinthitis. Some component of BPPV. Patient's examination is nonfocal, therefore central cause less likely. * Hypertension, uncontrolled, which could be contributing to the vertigo. * Hyperlipidemia Plan: * Carotid Doppler * B12, folate, TSH, fasting lipid panel, hemoglobin A1c * Continue aspirin, we'll increase the dose to 162 mg. * Optimize control of blood pressure as per IM. * Meclizine as needed for vertigo. * Neuro checks. * Neurology will follow.
[2021-05-09] MEDS: hydrALAZINE HCL 25 MG TAB PO SCH (20:19)
[2021-05-09] MEDS: ASPIRIN 81 MG PO SCH (20:19)
[2021-05-09 20:40] LABS: Folate, Serum >20.00 ng/mL (4.40-31.00)
[2021-05-09] MEDS ORDERED: VERAPAMIL SR 120 MG TABLET.ER PO SCH (21:00)
[2021-05-10] MEDS: SODIUM CHLORIDE 0.9% 1,000 ML IV SCH ×2 (05:45→15:05)
[2021-05-10] MEDS ORDERED: ENOXAPARIN 40 MG/0.4 ML SYRINGE SQ SCH (09:00)
[2021-05-10] MEDS ORDERED: hydroCHLOROthiazide 25 MG TAB PO SCH (09:00)
[2021-05-10] MEDS ORDERED: LOSARTAN 50 MG TAB PO SCH (09:00)
[2021-05-10] MEDS ORDERED: FUROSEMIDE 20 MG TAB PO SCH (09:00)
[2021-05-10 10:13] LABS: HDL Cholesterol 64.3 mg/dL (40.00-60.00)
[2021-05-10] MEDS ORDERED: DOCUSATE 100 MG CAP PO SCH (10:15)
[2021-05-10 10:24] LABS: Chol/HDL Ratio 2.94 Ratio
[2021-05-10] MEDS: ASPIRIN 81 MG PO SCH (10:29)
[2021-05-10] MEDS: hydrALAZINE HCL 25 MG TAB PO SCH (10:30)
[2021-05-10 11:20] LABS: African American GFR (CKD) >90 (>60 ml/min/1.73 sqM); Anion Gap 7 mmol/L; Blood Urea Nitrogen 16 mg/dL (7-17); Calcium 9.5 mg/dL (8.4-10.2); Carbon Dioxide 24 mmol/L (22-30); Chloride 105 mmol/L (98-107); Glucose 86 mg/dL (74-99); Non-African American GFR(CKD) 86 (>60 ml/min/1.73 sqM); Potassium 4.2 mmol/L (3.5-5.1); Sodium 136 mmol/L (137-145)
[2021-05-10 15:03] VITALS: BP 162/76; PULSE 77; RESP 16; TEMP 97.5
[2021-05-11] MEDS ORDERED: amLODIPine 5 MG TAB PO SCH (09:00)
--- NOTE | 2021-05-11 09:28 | P.PN ---
Subjective Progress Note Date: 05/10/21 Patient was seen for a follow-up. Patient states that she is feeling much better. Her dizziness is almost resolved. No nausea vomiting. Denies any focal symptoms. Denies any headache. Patient's blood pressure has been running high, 156/75, and prior to that was 177/78. Objective - Vital Signs Vital signs: Vital Signs Temp 97.5 F L 05/10/21 15:02 Pulse 77 05/10/21 15:02 Resp 16 05/10/21 15:02 BP 162/76 05/10/21 15:02 Pulse Ox 100 05/10/21 15:02 Intake & Output 05/10/21 05/11/21 05/11/21 18:59 06:59 18:59 Other: Voiding Method Toilet # Voids 2 # Bowel Movements 1 - Exam Patient's mental status, speech and language functions are normal. Cranial nerves are normal. Visual pierce are full, pupils are round and reacting. Equal in size. Extraocular muscles are intact with no nystagmus. Face is symmetric. Tongue protrudes the midline. Muscle strength is no pronator drift and the strength is normal in arms and legs. Reflexes are symmetric. No ataxia for [id number] testing bilaterally. No ataxia for ulcs-rb-laes testing. Patient walks fairly stable, slightly cautious, but normal base, and stride. - Labs CBC & Chem 7: 05/09/21 08:35 05/10/21 06:24 Labs: Abnormal Lab Results - Last 24 Hours (Table) 05/10/21 05/10/21 Range/Units 06:24 06:24 Sodium 136 L (137-145) mmol/L HDL Cholesterol 64.30 H (40.00-60.00) mg/dL Assessment and Plan Assessment: * Vertigo, probably labyrinthitis. Some component of BPPV. Patient's examination is nonfocal, therefore central cause very unlikely. * Hypertension, uncontrolled, which could be contributing to the vertigo. * Hyperlipidemia Plan: * Carotid Doppler revealed no hemodynamic significant stenosis of the proximal ICA. Antegrade flow in both vertebral arteries. * B12 1647, folate >20, TSH 2.67 * Fasting lipid panel cholesterol 189, LDL 1:15, HDL 64 and triglycerides 48. * Hemoglobin A1c 6.3. Recommend dietary modification, healthy lifestyles and regular aerobic exercises. * Continue aspirin, we'll increase the dose to 162 mg. * Optimize control of blood pressure as per IM. * Meclizine as needed for vertigo. * Neurologically clear.
--- NOTE | 2021-05-11 23:25 | P.DS ---
Providers Date of admission: 05/09/21 10:15 Attending physician: Jaelyn Foote Consults: 05/09/21 10:40 Consult Physician Routine Consulting Provider: Arcenio Geronimo Consult Reason/Comments: dizziness Do you want consulting provider notified?: Yes Primary care physician: Davion Clement [facility] Course: Final Diagnosis Vertigo possibly labrynthitis, with component Benign Positional Vertigo, symptoms improved once started on meclizine Hypertension, patient resumed on home medications however hydrochlorothiazide was discontinued and patient was started on lasix as lasix will affect the sodium less than a thiazide diuretic Mild hyponatremia secondary to diuretics Hyperlipidemia Prediabetic with hemoglobin A1C 6.3, random glucose 101 Obesity GI Prophylaxis DVT Prophylaxis FULL CODE Discharge Disposition Patient cleared for discharge home to follow up with PCP. If symptoms persist recommend follow up with ENT in the outpatient setting. Blood pressures improved. Hospital Course This is a pleasant 76 year old female who presents to the hospital with complaints of dizziness with room spinning. Patient first experienced this 4 days prior to admission, resolved sponteanously than returned. She was concerned and came to the . Past medical history is significant for hypertension, hyperlipidemia, obesity. Also patient had complained of vomiting up her breakfast, and dizziness has persisted. Symptoms are worse with head movement especially sudden. She does change positions slowly at home, uses a walker to ambulate. She lives by herself. Patient follows with Dr Clement in the outpatie nt setting. She has been admitted to the hospital with a consultation to neurology. Brain CT on admission shows degenerative and minimal nonspecific white matter changes most typical of remote ischemia. Correlate with MRI as clinically warranted. Chest xray shows cardiomegaly with chronic emphysematous change without acute cardiopulmonary process. Carotid Doppler shows no hemodynamic significant stenosis of the proximal internal carotid arteries by doppler criteria, an indirect measurement of carotid stenosis. Labs: Blood count unremarkable, sodium 134, BUN 20, creatinine 0.78, glucose 101 , hemoglobin a1c 6.3, TSH 2.670, COVID PCR Negative Cholesterol panel: Triglycerides 48, total chol 189, LDL 115 HDL 64.3 Vital signs; afebrile, heart rate 77, blood pressure 162/76, 100% room air. Patient treated with meclizine, started on amlodipine, and because of sodium on the lower side hydrochlorothiazide discontinued and patient was started on lasix. Repeat BMP outpatient. Neurology evaluated the patient and felt dizziness possible attributed to hypertension with a component of BPPV. Her symptoms have resolved with treatment of blood pressure and the addition of meclizine. Patient was recommended to take Aspirin 162 mg PO daily for stroke prophylaxis as well as diet and lifestyle modifications as she is in the prediabetic range for her A1C. Would recommend A1C follow up in 3 months. 05/10/2021 Patient evaluated today sitting up in the chair and overall is feeling much better. Cleared by neurology for discharge. Patient updated on plan of care and feels stable for discharge. Vitals stable, labs unremarkable. Denies chest pain, cough, shortness of breath. Denies nausesa, vomiting, diarrhea. Denies lightheadedness, reports mild dizzines with head turning. Lungs are clear, s1 and s2 auscultated, abdomen is soft and nontender, focal neurological exam is negative. No acute events overnight. Patient cleared for discharge. Please see medication reconciliation for a list of current medications. Thank you for allowing us to participate in the care of this patient. Patient Condition at Discharge: Stable Plan - Discharge Summary Discharge Rx Participant: No New Discharge Prescriptions: New Meclizine [Antivert] 25 mg PO Q6H PRN #60 tab PRN Reason: Vertigo Docusate [Colace] 100 mg PO DAILY cap Furosemide [Lasix] 20 mg PO DAILY 1 Days #30 tab Famotidine [Pepcid] 20 mg PO DAILY #30 tablet amLODIPine [Norvasc] 5 mg PO DAILY #30 tab Aspirin 162 mg PO DAILY #60 tab Continue Multivit-Min/FA/Lycopene/Lut [Centrum Silver Tablet] 1 tab PO W/LUNCH hydrALAZINE HCL [Apresoline] 25 mg PO BID Cholecalciferol [Vitamin D3 (10 Mcg = 400 Iu)] 10 mcg PO W/LUNCH Calcium Carbonate [Calcium] 1,200 mg PO W/LUNCH Verapamil HCl [Verapamil ER] 120 mg PO HS Candesartan Cilexetil [Atacand] 32 mg PO DAILY Discontinued hydroCHLOROthiazide [Hydrodiuril] 25 mg PO DAILY Discharge Medication List Multivit-Min/FA/Lycopene/Lut [Centrum Silver Tablet] 1 tab PO W/LUNCH 09/27/14 [History] hydrALAZINE HCL [Apresoline] 25 mg PO BID 03/26/17 [History] Calcium Carbonate [Calcium] 1,200 mg PO W/LUNCH 06/25/20 [History] Candesartan Cilexetil [Atacand] 32 mg PO DAILY 06/25/20 [History] Cholecalciferol [Vitamin D3 (10 Mcg = 400 Iu)] 10 mcg PO W/LUNCH 06/25/20 [History] Verapamil HCl [Verapamil ER] 120 mg PO HS 06/25/20 [History] Aspirin 162 mg PO DAILY #60 tab 05/10/21 [Rx] Docusate [Colace] 100 mg PO DAILY cap 05/10/21 [Rx] Famotidine [Pepcid] 20 mg PO DAILY #30 tablet 05/10/21 [Rx] Furosemide [Lasix] 20 mg PO DAILY 1 Days #30 tab 05/10/21 [Rx] Meclizine [Antivert] 25 mg PO Q6H PRN #60 tab 05/10/21 [Rx] amLODIPine [Norvasc] 5 mg PO DAILY #30 tab 05/10/21 [Rx] Follow up Appointment(s)/Referral(s): Davion Clement DO [Primary Care Provider] - 05/15/21 (As previously scheduled. ) Ambulatory/Diagnostic Orders: Basic Metabolic Panel [LAB.AMB] Time Frame: 2 Days, Location: None Selected Patient Instructions/Handouts: Famotidine (By mouth), Furosemide (By mouth), Aspirin (By mouth), Meclizine (By mouth), Amlodipine (By mouth), Vertigo (DC), Benign Paroxysmal Positional Vertigo (DC) Activity/Diet/Wound Care/Special Instructions: If dizziness persists may follow up with ENT for further evaluation. Meclizine as needed for positional vertigo. Discharge Disposition: HOME SELF-CARE
== END 2021-05-10 17:11 | disposition home or self-care (01) ==
LOC: EC 07:54 → 5NMEDONC 10:15
PROVIDERS: ADMIT Internal Medicine; ATTEND Internal Medicine
DX: H81.10 Benign paroxysmal vertigo, unspecified ear (principal); R51.9 Headache, unspecified; H93.13 Tinnitus, bilateral; I11.9 Hypertensive heart disease without heart failure; E87.1 Hypo-osmolality and hyponatremia; T50.2X5A Adverse effect of carbonic-anhydrase inhibitors, benzothiadiazides and other diuretics, initial encounter; E78.5 Hyperlipidemia, unspecified; E66.9 Obesity, unspecified; Z68.31 Body mass index [BMI] 31.0-31.9, adult; R73.03 Prediabetes; Z20.822 Contact with and (suspected) exposure to COVID-19; Z71.3 Dietary counseling and surveillance; Z71.9 Counseling, unspecified; Z79.899 Other long term (current) drug therapy; Z79.82 Long term (current) use of aspirin; Z88.8 Allergy status to other drugs, medicaments and biological substances; Z88.5 Allergy status to narcotic agent; Z91.040 Latex allergy status; Z91.048 Other nonmedicinal substance allergy status; Z96.653 Presence of artificial knee joint, bilateral; Z90.710 Acquired absence of both cervix and uterus; Z82.49 Family history of ischemic heart disease and other diseases of the circulatory system; Z82.3 Family history of stroke
CPT/HCPCS: 96361 ×3; 96372; 96374; 99285; 36415; 93005; 80061; 80053; 80048; 84443; 82607; 82746; 85025; 83721; 83036; 87635; 71046; 93880; 70450; G0378 ×2; J3360; J1650

== ENCOUNTER → 2021-05-12 | Outpatient (CLI) | payer MEDICARE ==
[2021-05-12 18:13] LABS: African American GFR (CKD) 96.2 (60.0-200.0); Anion Gap 12.3 mmol/L (10.00-18.00); BUN/Creat Ratio 26.57 Ratio (12.00-20.00); Blood Urea Nitrogen 18.6 mg/dL (9.0-27.0); Calcium 9.4 mg/dL (8.7-10.3); Carbon Dioxide 24.7 mmol/L (20.0-27.5); Potassium 4.1 mmol/L (3.5-5.5)
== END | disposition home or self-care (01) ==
LOC: LABWHC1 12:06
PROVIDERS: ATTEND Nurse Practitioner Family
DX: E87.1 Hypo-osmolality and hyponatremia (principal)
CPT/HCPCS: 36415; 80048

== ENCOUNTER → 2021-12-06 | Outpatient (CLI) | payer MEDICARE ==
--- NOTE | 2021-12-08 06:10 | MR ---
EXAMINATION TYPE: MR iac wo/w con DATE OF EXAM: 12/06/2021 COMPARISON: None HISTORY: Dizziness CONTRAST: Standard multiplanar, multisequence MRI departmental protocol images were obtained without contrast a nd with 8 mL intravenous gadolinium contrast. Ventricles have fairly normal size. There is no mass effect or midline shift. No sign of intracranial hemorrhage. Diffusion images show no sign of an acute infarct. There is slight thinning of the corpu s callosum. There is mild cerebral cortical atrophy. There are scattered white matter high signal foc i measuring up to 4 mm in the periventricular white matter. These are more concentrated in the pariet al lobes and total number is approximately 20. There is small foci of increased signal measuring 3 to 4 mm in the marlys bilaterally. There is no evidence of posterior fossa mass. The internal auditory canals appear normal. Acoustic ne rve and vestibular nerve appear normal. No sign of cerebellopontine angle mass. There is no pathologi c enhancement. There is normal signal pattern of the mastoid sinuses. No evidence of mastoiditis. IMPRESSION: Negative internal auditory canal exam. Cerebral atrophy and white matter signal changes or could relate to microvascular ischemia or less li matilde demyelinating disease. There is also involvement of the marlys.
== END | disposition home or self-care (01) ==
LOC: RADMRIMAIN 06:48
PROVIDERS: ATTEND Otolaryngology
DX: R42 Dizziness and giddiness (principal); H91.92 Unspecified hearing loss, left ear
CPT/HCPCS: 70553; A9585

== ENCOUNTER 2022-03-19 15:27 | Inpatient (IN) | payer MEDICARE ==
[2022-03-19] MEDS ORDERED: methylPREDNISolone SOD SUCCI 125 MG/2 ML VIAL IV STA (16:18)
[2022-03-19] MEDS ORDERED: IPRATROPIUM-ALBUTEROL 3 ML NEB INHALATION STA (16:18)
[2022-03-19] MEDS ORDERED: hydrALAZINE HCL 20 MG/ML 1 ML VIAL IVP STA ×2 (16:22→19:46)
--- NOTE | 2022-03-19 16:52 | ED ---
General Adult HPI - General Chief complaint: Shortness of Breath Stated complaint: sob/pneumonia Time Seen by Provider: 03/19/22 16:02 Source: patient Mode of arrival: ambulatory Limitations: no limitations - History of Present Illness Initial comments: This 76-year-old female presents with complaint of a cough. She apparently has had this for the past 3 days. She has only mild clear production. She denies any actual fever stating that yesterday she had a temperature of 99. She has occasional chest pressure. There is no leg pain or swelling. She does have a history of asthma but denies any history of COPD or emphysema. There is no history of DVT or PE. She apparently was seen at the urgent care and sent to the ER for further evaluation. They apparently did an x-ray at the urgent care and thought that she may have some pneumonia. 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 No other complaints or modifying factors. - Related Data Home Medications Medication Instructions Recorded Confirmed Multivit-Min/FA/Lycopene/Lut 1 tab PO DAILY 09/27/14 03/19/22 [Centrum Silver Tablet] hydrALAZINE HCL [Apresoline] 25 mg PO BID 03/26/17 03/19/22 Calcium Carbonate [Calcium] 1,200 mg PO DAILY 06/25/20 03/19/22 Candesartan Cilexetil [Atacand] 32 mg PO DAILY 06/25/20 03/19/22 Cholecalciferol [Vitamin D3 (10 10 mcg PO DAILY 06/25/20 03/19/22 Mcg = 400 Iu)] Verapamil HCl [Verapamil ER] 120 mg PO DAILY 06/25/20 03/19/22 Albuterol Sulfate [Albuterol 2 puff INHALATION RT-QID PRN 03/19/22 03/19/22 Sulfate Hfa] hydroCHLOROthiazide [Hydrodiuril] 25 mg PO DAILY 03/19/22 03/19/22 Allergies Allergy/AdvReac Type Severity Reaction Status Date / Time latex Allergy Rash/Hives Verified 03/19/22 18:35 nickel Allergy Unknown Verified 03/19/22 18:35 shellfish derived [Shellfish] Allergy Unknown Verified 03/19/22 18:35 hydrocodone bitartrate AdvReac Nausea & Verified 03/19/22 18:35 [From [place]] Vomiting meloxicam AdvReac Nausea & Verified 03/19/22 18:35 Vomiting Review of Systems ROS Statement: Those systems with pertinent positive or pertinent negative responses have been documented in the HPI. ROS Other: All systems not noted in ROS Statement are negative. Past Medical History Past Medical History: Asthma, Hypertension Additional Past Medical History / Comment(s): Arthritis History of Any Multi-Drug Resistant Organisms: None Reported Past Surgical History: Hysterectomy, Joint Replacement, Orthopedic Surgery Additional Past Surgical History / Comment(s): jakob knee replacement, arthroscopic lt shoulder; cataracts Past Anesthesia/Blood Transfusion Reactions: Motion Sickness Past Psychological History: No Psychological Hx Reported Smoking Status: Never smoker Past Alcohol Use History: None Reported Past Drug Use History: None Reported - Past Family History Father Family Medical History: CVA/TIA, Myocardial Infarction ([place]) Mother Family Medical History: No Reported History General Exam - General Exam Comments Initial Comments: GENERAL: The patient is well nourished and well hydrated. VITAL SIGNS: Heart rate, blood pressure, respiratory rate reviewed as recorded in nurse's notes. EYES: Pupils are round and reactive. Extraocular movements are intact. No conjunctival / lid redness or swelling. ENT: No external evidence of injury, swelling, or ecchymosis. Airway is patent. Throat is clear. NECK: Nontender. No swelling or evidence of injury. No subcutaneous emphysema. Trachea is midline. No thyroid mass. HEART: Regular rate and rhythm. Good peripheral pulses. No peripheral edema identified. LUNGS/CHEST: Mild wheezing noted bilaterally. No rhonchi or rales. No respiratory distress, slightly tachypneic. ABDOMEN: Abdomen soft without tenderness. No palpable masses or organomegaly. No peritoneal signs. No abdominal wall swelling or ecchymosis. EXTREMITIES: No extremity tenderness. Normal muscle tone and function. No thoracolumbar tenderness. NEUROLOGIC: Sensation is grossly intact. Cranial nerve exam reveals face is symmetrical, tongue is midline, speech is clear. SKIN: No abrasions or ecchymosis is noted. No induration or masses noted. PSYCHIATRIC: Alert and oriented. Appropriate behavior and judgment. Limitations: no limitations Course Vital Signs 03/19/22 03/19/22 03/19/22 15:30 16:00 17:41 Temperature 98.0 F Pulse Rate 53 L 55 L 73 Respiratory 20 16 Rate Blood Pressure 233/87 200/100 O2 Sat by Pulse 98 95 Oximetry Medical Decision Making - Medical Decision Making The patient was seen and examined. All diagnostics are reviewed. She is placed on alarm security or surveillance monitor and no ectopy is identified. Her blood pressure is fairly elevated and she receives hydralazine IV. She does have some bronchospasm noted on exam and Solu-Medrol and DuoNeb are also ordered. X-rays done and this does show bilobar right-sided pneumonia. She started on Zithromax as well as Rocephin intravenously. The patient had a laboratory analysis which is overall unremarkable. The EKG shows a sinus bradycardia at a rate of 59. There is some nonspecific ST-T wave changes noted in the anteroseptal leads. The LA intervals 128, QRS duration is 76, and QTC intervals 407. It is felt as though patient would require admission to the hospital for further treatment. She is agreeable. Case is discussed with internal medicine as well and they are agreeable. - Lab Data Result diagrams: 03/19/22 17:13 03/19/22 17:48 Lab Results 03/19/22 03/19/22 03/19/22 Range/Units 17:13 17:13 17:13 WBC 5.4 (3.8-10.6) k/uL RBC 3.98 (3.80-5.40) m/uL Hgb 12.2 (11.4-16.0) gm/dL Hct 36.6 (34.0-46.0) % MCV 91.8 (80.0-100.0) fL MCH 30.7 (25.0-35.0) pg MCHC 33.4 (31.0-37.0) g/dL RDW 13.3 (11.5-15.5) % Plt Count 262 (150-450) k/uL MPV 7.7 Neutrophils % 63 % Lymphocytes % 24 % Monocytes % 9 % Eosinophils % 1 % Basophils % 1 % Neutrophils # 3.4 (1.3-7.7) k/uL Lymphocytes # 1.3 (1.0-4.8) k/uL Monocytes # 0.5 (0-1.0) k/uL Eosinophils # 0.1 (0-0.7) k/uL Basophils # 0.0 (0-0.2) k/uL PT 10.3 (9.0-12.0) sec INR 1.0 (<1.2) APTT 23.5 (22.0-30.0) sec Sodium (137-145) mmol/L Potassium (3.5-5.1) mmol/L Chloride (98-107) mmol/L Carbon Dioxide (22-30) mmol/L Anion Gap mmol/L BUN (7-17) mg/dL Creatinine (0.52-1.04) mg/dL Est GFR (CKD-EPI)AfAm (>60 ml/min/1.73 sqM) Est GFR (CKD-EPI)NonAf (>60 ml/min/1.73 sqM) Glucose (74-99) mg/dL Plasma Lactic Acid [place] 1.1 (0.7-2.0) mmol/L Calcium (8.4-10.2) mg/dL Total Bilirubin (0.2-1.3) mg/dL AST (14-36) U/L ALT (4-34) U/L Alkaline Phosphatase (38-126) U/L Troponin I (0.000-0.034) ng/mL Total Protein (6.3-8.2) g/dL Albumin (3.5-5.0) g/dL Influenza Type A (PCR) (Not Detectd) Influenza Type B (PCR) (Not Detectd) RSV (PCR) (Not Detectd) SARS-CoV-2 (PCR) (Not Detectd) 03/19/22 03/19/22 03/19/22 Range/Units 17:13 17:13 17:48 WBC (3.8-10.6) k/uL RBC (3.80-5.40) m/uL Hgb (11.4-16.0) gm/dL Hct (34.0-46.0) % MCV (80.0-100.0) fL MCH (25.0-35.0) pg MCHC (31.0-37.0) g/dL RDW (11.5-15.5) % Plt Count (150-450) k/uL MPV Neutrophils % % Lymphocytes % % Monocytes % % Eosinophils % % Basophils % % Neutrophils # (1.3-7.7) k/uL Lymphocytes # (1.0-4.8) k/uL Monocytes # (0-1.0) k/uL Eosinophils # (0-0.7) k/uL Basophils # (0-0.2) k/uL PT (9.0-12.0) sec INR (<1.2) APTT (22.0-30.0) sec Sodium 138 (137-145) mmol/L Potassium 3.5 (3.5-5.1) mmol/L Chloride 104 (98-107) mmol/L Carbon Dioxide 25 (22-30) mmol/L Anion Gap 9 mmol/L BUN 16 (7-17) mg/dL Creatinine 0.67 (0.52-1.04) mg/dL Est GFR (CKD-EPI)AfAm >90 (>60 ml/min/1.73 sqM) Est GFR (CKD-EPI)NonAf 85 (>60 ml/min/1.73 sqM) Glucose 107 H (74-99) mg/dL Plasma Lactic Acid [place] (0.7-2.0) mmol/L Calcium 8.9 (8.4-10.2) mg/dL Total Bilirubin 0.5 (0.2-1.3) mg/dL AST 27 (14-36) U/L ALT 15 (4-34) U/L Alkaline Phosphatase 96 (38-126) U/L Troponin I <0.012 (0.000-0.034) ng/mL Total Protein 7.2 (6.3-8.2) g/dL Albumin 4.1 (3.5-5.0) g/dL Influenza Type A (PCR) Not Detected (Not Detectd) Influenza Type B (PCR) Not Detected (Not Detectd) RSV (PCR) Not Detected (Not Detectd) SARS-CoV-2 (PCR) Not Detected (Not Detectd) Disposition Clinical Impression: Cough, Bronchospasm, Hypertension, Pneumonia, Asthma exacerbation Disposition: ADMITTED IP TO THIS HOSP Condition: Fair Is patient prescribed a controlled substance at d/c from ED?: No Time of Disposition: 19:20 Decision Date: 03/19/22 Decision Time: 19:20
--- NOTE | 2022-03-19 17:02 | XR ---
EXAMINATION TYPE: XR chest 2V DATE OF EXAM: 03/19/2022 COMPARISON: NONE HISTORY: Short of breath. Chest pressure. TECHNIQUE: 2 views FINDINGS: Heart is top normal in size. There is some infiltrate in the right upper lobe adjacent to t he major fissure. There is slight blunting of the costophrenic angles. There is minimal pulmonary con gestion. There is also some mild infiltrate in the right middle lobe. Bony thorax is intact. IMPRESSION: There is right upper lobe and right middle lobe pneumonia which is new compared to old ex am. Mild heart failure also possible.
[2022-03-19 17:28] LABS: Basophils % (A) 1 %; Eosinophils # (A) 0.1 k/uL (0-0.7); Eosinophils % (A) 1 %; HCT 36.6 % (34.0-46.0); HGB 12.2 gm/dL (11.4-16.0); Lymphocytes # (A) 1.3 k/uL (1.0-4.8); Lymphocytes % (A) 24 %; MCH 30.7 pg (25.0-35.0); MCHC 33.4 g/dL (31.0-37.0); MCV 91.8 fL (80.0-100.0); Mean Platelet Volume 7.7; Monocytes # (A) 0.5 k/uL (0-1.0); Monocytes % (A) 9 %; Neutrophils # (A) 3.4 k/uL (1.3-7.7); Neutrophils % (A) 63 %; Platelet Count 262 k/uL (150-450); RBC 3.98 m/uL (3.80-5.40); RDW 13.3 % (11.5-15.5); WBC 5.4 k/uL (3.8-10.6)
[2022-03-19 17:40] LABS: Partial Thromboplastin Time 23.5 sec (22.0-30.0); Prothrombin Time 10.3 sec (9.0-12.0)
[2022-03-19 18:10] LABS: ALT 15 U/L (4-34); AST 27 U/L (14-36); African American GFR (CKD) >90 (>60 ml/min/1.73 sqM); Albumin 4.1 g/dL (3.5-5.0); Alkaline Phosphatase 96 U/L (38-126); Anion Gap 9 mmol/L; Blood Urea Nitrogen 16 mg/dL (7-17); Calcium 8.9 mg/dL (8.4-10.2); Carbon Dioxide 25 mmol/L (22-30); Chloride 104 mmol/L (98-107); Glucose 107 mg/dL (74-99); Non-African American GFR(CKD) 85 (>60 ml/min/1.73 sqM); Potassium 3.5 mmol/L (3.5-5.1); Sodium 138 mmol/L (137-145); Total Bilirubin 0.5 mg/dL (0.2-1.3); Total Protein 7.2 g/dL (6.3-8.2)
[2022-03-19] MEDS ORDERED: traMADol 50 MG TAB PO STA (19:16)
[2022-03-19] MEDS ORDERED: AZITHROMYCIN 500 MG in SODIUM CHLORIDE 0.9% 250 ML IVPB STA (19:18)
[2022-03-19] MEDS ORDERED: PNEUMONIA PROTOCOL UTILIZED 1 EACH MISC PO PRN (19:39)
[2022-03-19] MEDS ORDERED: hydrALAZINE HCL 20 MG/ML 1 ML VIAL IVP PRN (19:46)
[2022-03-19] MEDS: HEPARIN SODIUM,PORCINE/PF 5,000 UNIT/0.5 ML SYRINGE SQ SCH (21:43)
[2022-03-19] MEDS: hydrALAZINE HCL 25 MG TAB PO SCH (21:43)
[2022-03-19] MEDS: methylPREDNISolone SOD SUCCI 125 MG/2 ML VIAL IV SCH (21:43)
[2022-03-20] MEDS: IPRATROPIUM-ALBUTEROL 3 ML NEB INHALATION PRN ×2 (08:58→11:31)
[2022-03-20] MEDS: HEPARIN SODIUM,PORCINE/PF 5,000 UNIT/0.5 ML SYRINGE SQ SCH ×2 (09:23→15:42)
[2022-03-20] MEDS: CHOLECALCIFEROL 10 MCG (400 IU) TABLET PO SCH (09:24)
[2022-03-20] MEDS: CALCIUM CARBONATE 500 MG CHEWABLE PO SCH (09:24)
[2022-03-20] MEDS: hydroCHLOROthiazide 25 MG TAB PO SCH ×2 (09:24→09:25)
[2022-03-20] MEDS: MULTIVITAMINS, THERA 1 EACH TAB PO SCH (09:25)
[2022-03-20] MEDS: VERAPAMIL SR 120 MG TABLET.ER PO SCH (09:25)
[2022-03-20] MEDS: LOSARTAN 50 MG TAB PO SCH (09:25)
[2022-03-20] MEDS: hydrALAZINE HCL 25 MG TAB PO SCH ×2 (09:25→21:50)
[2022-03-20] MEDS: methylPREDNISolone SOD SUCCI 125 MG/2 ML VIAL IV SCH (09:27)
[2022-03-20] MEDS ORDERED: ACETAMINOPHEN TAB 325 MG TAB PO PRN (12:12)
[2022-03-20] MEDS ORDERED: FUROSEMIDE 10 MG/ML 4 ML VIAL IV STA (15:06)
--- NOTE | 2022-03-20 15:13 | P.HPIM ---
History of Present Illness H&P Date: 03/20/22 This is a 76-year-old female with medical history of asthma, hypertension, arthritis. Asthma is managed by her primary provider, states she was diagnosed in her 70s about 5 years after long-term. 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 States her asthma is controlled with albuterol inhaler however has had to use inhaler more frequently. Feels her asthma is exacerbated by respiratory illness. Patient presented to the hospital with complaints of a cough that has been ongoing for the last 3 weeks. She reports shortness of breath, and low grade fever 99. Had a few episodes of diarrhea. Currently cough is dry she states she is unable to expectorate. Denies chest pain, denies leg swelling. She was evaluated at the urgent care was sent to the ER for further evaluation patient states she had a chest xray completed there that was supspicious for pneumonia. Chest x-ray at this facility does show a right upper lobe and right middle lobe pneumonia which is new compared to old exam there is no pulmonary congestion possible heart failure. EKG shows ectopic atrial bradycardia. She has no white count on admission, doesn't appear clinically dehydrated, her blood work is essentially unremarkable, her proBNP is 1760 which is below the normal threshold for age. Troponin negative. She is negative for RSV, influenza and Covid. Patient is admitted for acute asthma exacerbation, she is started on oral antibiotics and steroids, requiring 2 liters of oxygen via nasal cannula. REVIEW OF SYSTEMS: CONSTITUTIONAL: Reports low grade fever, no malaise, no fatigue. Reports headache. HEENT: No recent visual problems or hearing problems. Denied any sore throat. CARDIOVASCULAR: No chest pain, orthopnea, PND, no palpitations, no syncope. PULMONARY: Reports shortness of breath and cough. GASTROINTESTINAL: No diarrhea, no nausea, no vomiting, no abdominal pain. NEUROLOGICAL: No headaches, no weakness, no numbness. HEMATOLOGICAL: Denies any bleeding or petechiae. GENITOURINARY: Denies any burning micturition, frequency, or urgency. MUSCULOSKELETAL/RHEUMATOLOGICAL: Denies any joint pain, swelling, or any muscle pain. ENDOCRINE: Denies any polyuria or polydipsia. The rest of the 14-point review of systems is negative. PHYSICAL EXAMINATION: GENERAL: The patient is alert and oriented x3, not in any acute distress. Well developed, well nourished. HEENT: Pupils are round and equally reacting to light. EOMI. No scleral icterus. No conjunctival pallor. Normocephalic, atraumatic. No pharyngeal erythema. No thyromegaly. CARDIOVASCULAR: S1 and S2 present. No murmurs, rubs, or gallops. PULMONARY: Faint expiratory wheezing, no crackles noted. Diminished. ABDOMEN: Soft, nontender, nondistended, normoactive bowel sounds. No palpable organomegaly. MUSCULOSKELETAL: No joint swelling or deformity. EXTREMITIES: No cyanosis, clubbing, or pedal edema. NEUROLOGICAL: Gross neurological examination did not reveal any focal deficits. SKIN: No rashes. Assessment and plan Assessment Acute asthma exacerbation possibly from right lung peumonia, community acquired Pulmonary congestion, mild on Xray, proBNP not abnormal, right lobe infiltrate pneumonia vs. heart failure. Hypertension maintained on multiple blood pressure medications including hydro- Diuril, verapamil, hydralazine, candesartan Prior history of hyponatremia monitor closely Hyperlipidemia History arthritis with orthopedic surgery Never smoker GI prophylaxis DVT prophylaxis Full Code Plan Continue patient on antibiotics, IV steroids Tylenol Check procalcitonin level Duonebs QID and prn titrate oxygen as needed IV lasix x 1 and echocardiogram ordered Continue all other supportive care The impression and plan of care has been dictated by Magaly Mitchell Nurse Practitioner as directed. Dr. Qamar MD I have performed a history and physical examination and medical decision making of this patient, discussed the same with the dictator, and agree with the dictators assessment and plan as written, documented as a scribe. Based on total visit time, I have performed more than 50% of this visit. Past Medical History Past Medical History: Asthma, Hypertension Additional Past Medical History / Comment(s): Arthritis History of Any Multi-Drug Resistant Organisms: None Reported Past Surgical History: Hysterectomy, Joint Replacement, Orthopedic Surgery Additional Past Surgical History / Comment(s): jakob knee replacement, arthroscopic lt shoulder; cataracts Past Anesthesia/Blood Transfusion Reactions: Motion Sickness Past Psychological History: No Psychological Hx Reported Smoking Status: Never smoker Past Alcohol Use History: None Reported Past Drug Use History: None Reported - Past Family History Father Family Medical History: CVA/TIA, Myocardial Infarction ([place]) Mother Family Medical History: No Reported History Medications and Allergies Home Medications Medication Instructions Recorded Confirmed Type Multivit-Min/FA/Lycopene/Lut 1 tab PO DAILY 09/27/14 03/19/22 History [Centrum Silver Tablet] hydrALAZINE HCL [Apresoline] 25 mg PO BID 03/26/17 03/19/22 History Calcium Carbonate [Calcium] 1,200 mg PO DAILY 06/25/20 03/19/22 History Candesartan Cilexetil [Atacand] 32 mg PO DAILY 06/25/20 03/19/22 History Cholecalciferol [Vitamin D3 (10 10 mcg PO DAILY 06/25/20 03/19/22 History Mcg = 400 Iu)] Verapamil HCl [Verapamil ER] 120 mg PO DAILY 06/25/20 03/19/22 History Albuterol Sulfate [Albuterol 2 puff INHALATION RT-QID PRN 03/19/22 03/19/22 History Sulfate Hfa] hydroCHLOROthiazide [Hydrodiuril] 25 mg PO DAILY 03/19/22 03/19/22 History Allergies Allergy/AdvReac Type Severity Reaction Status Date / Time latex Allergy Rash/Hives Verified 03/19/22 18:35 nickel Allergy Unknown Verified 03/19/22 18:35 shellfish derived [Shellfish] Allergy Unknown Verified 03/19/22 18:35 hydrocodone bitartrate AdvReac Nausea & Verified 03/19/22 18:35 [From [place]] Vomiting meloxicam AdvReac Nausea & Verified 03/19/22 18:35 Vomiting Physical Exam Vitals: Vital Signs Temp Pulse Pulse Resp BP BP Pulse Ox 03/20/22 09:13 80 03/20/22 08:58 80 96 03/20/22 07:25 98.9 F 70 16 157/72 96 03/20/22 02:00 98.7 F 70 16 162/75 97 03/19/22 21:06 97.9 F 87 17 177/81 92 L 03/19/22 20:54 95 18 169/95 94 L 03/19/22 20:40 95 20 165/85 95 03/19/22 19:49 80 20 206/93 93 L 03/19/22 18:00 77 16 190/96 94 L 03/19/22 17:41 73 03/19/22 16:00 55 L 16 200/100 95 03/19/22 15:30 98.0 F 53 L 20 233/87 98 Intake and Output 03/19/22 03/20/22 03/20/22 22:59 06:59 14:59 Other: # Voids 3 Weight 74.389 kg Results CBC & Chem 7: 03/19/22 17:13 03/19/22 17:48 Labs: Abnormal Lab Results - Last 24 Hours (Table) 03/19/22 Range/Units 17:48 Glucose 107 H (74-99) mg/dL Thrombosis Risk Factor Assmnt - Choose All That Apply Each Factor Represents 1 point: Obesity (BMI >25) Each Risk Factor Represents 3 Points: Age 75 years or older Thrombosis Risk Factor Assessment Total Risk Factor Score: 4 Thrombosis Risk Factor Assessment Level: Moderate Risk Assessment and Plan Time with Patient: Less than 30
[2022-03-20] MEDS: IPRATROPIUM-ALBUTEROL 3 ML NEB INHALATION SCH ×2 (16:00→18:54)
[2022-03-20] MEDS ORDERED: AZITHROMYCIN 500 MG in SODIUM CHLORIDE 0.9% 250 ML IVPB SCH (17:00)
[2022-03-20] MEDS: methylPREDNISolone SOD SUCCI 40 MG/ML 1 ML VIAL IV SCH (21:50)
[2022-03-21] MEDS: HEPARIN SODIUM,PORCINE/PF 5,000 UNIT/0.5 ML SYRINGE SQ SCH ×4 (00:05→23:25)
[2022-03-21] MEDS: PANTOPRAZOLE 40 MG TABLET PO SCH (07:01)
[2022-03-21] MEDS: IPRATROPIUM-ALBUTEROL 3 ML NEB INHALATION SCH ×4 (08:25→20:16)
[2022-03-21 09:17] LABS: African American GFR (CKD) 62.5 (60.0-200.0); BUN/Creat Ratio 31.7 Ratio (12.00-20.00); Blood Urea Nitrogen 31.7 mg/dL (9.0-27.0); Non-African American GFR(CKD) 53.9 (60.0-200.0)
[2022-03-21] MEDS: methylPREDNISolone SOD SUCCI 40 MG/ML 1 ML VIAL IV SCH ×2 (10:05→21:03)
[2022-03-21] MEDS: FUROSEMIDE 10 MG/ML 2 ML VIAL IV SCH ×2 (10:05→21:03)
[2022-03-21] MEDS: LOSARTAN 50 MG TAB PO SCH (10:05)
[2022-03-21] MEDS: hydrALAZINE HCL 25 MG TAB PO SCH (10:06)
[2022-03-21] MEDS: CHOLECALCIFEROL 10 MCG (400 IU) TABLET PO SCH (10:06)
[2022-03-21] MEDS: MULTIVITAMINS, THERA 1 EACH TAB PO SCH (10:06)
[2022-03-21] MEDS: VERAPAMIL SR 120 MG TABLET.ER PO SCH (10:06)
[2022-03-21] MEDS: hydroCHLOROthiazide 25 MG TAB PO SCH (10:06)
[2022-03-21] MEDS: CALCIUM CARBONATE 500 MG CHEWABLE PO SCH (10:06)
[2022-03-21] MEDS ORDERED: hydrALAZINE HCL 25 MG TAB PO STA (10:31)
--- NOTE | 2022-03-21 14:50 | CA ---
Transthoracic Echo Report Name: Natalie Leon Age: 76 Gender: F : 1945 Exam Date: 03/21/2022 11:55 Exam Location: [facility] Ht (in): 64 Wt (lb): 164 Ordering Physician: Magaly Mitchell Attending/Referring Phys: Stephen SOLIMAN Email Marketing Intern Hermila Chawla RDCS Procedure CPT: Indications: Heart failure Cardiac Hx: Technical Quality: Fair Contrast 1: Total Dose (mL): Contrast 2: Total Dose (mL): MEASUREMENTS (Male / Female) Normal Values 2D ECHO LV Diastolic Diameter PLAX 4.9 cm 4.2 - 5.9 / 3.9 - 5.3 cm LV Systolic Diameter PLAX 3.4 cm IVS Diastolic Thickness 1.1 cm 0.6 - 1.0 / 0.6 - 0.9 cm LVPW Diastolic Thickness 1.1 cm 0.6 - 1.0 / 0.6 - 0.9 cm LV Relative Wall Thickness 0.4 RV Internal Dim ED PLAX 2.8 cm LA Volume 52.8 cm??? 18 - 58 / 22 - 52 cm??? M-MODE Aortic Root Diameter MM 2.6 cm LA Systolic Diameter MM 4.5 cm LA Ao Ratio MM 1.7 AV Cusp Separation MM 1.9 cm DOPPLER AV Peak Velocity 207.5 cm/s AV Peak Gradient 17.2 mmHg AV Mean Velocity 161.1 cm/s AV Mean Gradient 11.1 mmHg AV Velocity Time Integral 42.3 cm LVOT Peak Velocity 154.0 cm/s LVOT Peak Gradient 9.5 mmHg LVOT Velocity Time Integral 37.4 cm MV Area PHT 3.1 cm??? Mitral E Point Velocity 137.2 cm/s Mitral A Point Velocity 109.9 cm/s Mitral E to A Ratio 1.2 MV Deceleration Time 247.7 ms TR Peak Velocity 400.6 cm/s TR Peak Gradient 64.2 mmHg Right Ventricular Systolic Press 68.2 mmHg FINDINGS Left Ventricle Mildly increased septal wall thickness. Mildly increased posterior wall thickness. Normal left ventricular systolic function with no obvious regional wall motion abnormalities. Left ventricular ejection fraction is estimated at 55 %. Right Ventricle Mild right ventricular dilatation. Severe pulmonary hypertension. Right ventricular systolic pressure estimated at 68 mm hg. Right Atrium Mild right atrial dilatation. Left Atrium Normal left atrial size. Mitral Valve Structurally normal mitral valve. Mild mitral annular calcification. Mild mitral regurgitation. Aortic Valve Trileaflet aortic valve. No aortic valve stenosis or regurgitation. Tricuspid Valve Structurally normal tricuspid valve. Moderate tricuspid regurgitation. Pulmonic Valve Trace pulmonic regurgitation. Pericardium No pericardial effusion. Aorta Normal size aortic root and proximal ascending aorta. CONCLUSIONS Normal left ventricular dimension and systolic function Previewed by: Dr. Kulwinder Guerra MD (Electronically Signed) Final Date: 21 March 2022 14:49
[2022-03-21] MEDS ORDERED: MECLIZINE 12.5 MG TAB PO PRN (16:21)
[2022-03-21] MEDS ORDERED: BENZOCAINE/MENTHOL LOZENG 1 EACH LOZENGE MUCOUS MEM PRN (16:27)
--- NOTE | 2022-03-21 16:33 | P.PN ---
Subjective Progress Note Date: 03/21/22 This is a 76-year-old female with medical history of asthma, hypertension, arthritis. Asthma is managed by her primary provider, states she was diagnosed in her 70s about 5 years after prison. 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 States her asthma is controlled with albuterol inhaler however has had to use inhaler more frequently. Feels her asthma is exacerbated by respiratory illness. Patient presented to the hospital with complaints of a cough that has been ongoing for the last 3 weeks. She reports shortness of breath, and low grade fever 99. Had a few episodes of diarrhea. Currently cough is dry she states she is unable to expectorate. Denies chest pain, denies leg swelling. She was evaluated at the urgent care was sent to the ER for further evaluation patient states she had a chest xray completed there that was supspicious for pneumonia. Chest x-ray at this facility does show a right upper lobe and right middle lobe pneumonia which is new compared to old exam there is no pulmonary congestion possible heart failure. EKG shows ectopic atrial bradycardia. She has no white count on admission, doesn't appear clinically dehydrated, her blood work is essentially unremarkable, her proBNP is 1760 which is below the normal threshold for age. Troponin negative. She is negative for RSV, influenza and Covid. Patient is admitted for acute asthma exacerbation, she is started on oral antibiotics and steroids, requiring 2 liters of oxygen via nasal cannula. 03/21/2022 Patient is evaluated today on medical floor. Continues on 2L nasal cannula. Has some wheezing in the right base. Continues on bronchodilators and IV solumedrol 40 mg every 12 hours. She does complain of headache worse with coughing. She has history of vertigo and will be resumed on meclizine. She does report worsening headache with position changes as well. Blood pressure elevated today 180s systolic and hydralazine has been increased. She continues on IV lasix also. Echocardiogram shows normal LV systolic function and moderate triscupid regurgitation. PHYSICAL EXAMINATION: GENERAL: The patient is alert and oriented x3, not in any acute distress. Well developed, well nourished. HEENT: Pupils are round and equally reacting to light. EOMI. No scleral icterus. No conjunctival pallor. Normocephalic, atraumatic. No pharyngeal erythema. No thyromegaly. CARDIOVASCULAR: S1 and S2 present. No murmurs, rubs, or gallops. PULMONARY: Faint expiratory wheezing, no crackles noted. Diminished. ABDOMEN: Soft, nontender, nondistended, normoactive bowel sounds. No palpable organomegaly. MUSCULOSKELETAL: No joint swelling or deformity. EXTREMITIES: No cyanosis, clubbing, or pedal edema. NEUROLOGICAL: Gross neurological examination did not reveal any focal deficits. SKIN: No rashes. Assessment and plan Assessment Acute hypoxic respiratory failure multifocal secondary to acute asthma exacer bation, heart failure on 2l Nasal cannula Acute asthma exacerbation secondary to tracheobronchitis, procalcitonin is 0.12, community acquired pneumonia is ruled out. Acute diastolic heart failure, mild continue IV lasix Hypertension maintained on multiple blood pressure medications including hydro- Diuril, verapamil, hydralazine, candesartan Prior history of hyponatremia monitor closely BPH Hyperlipidemia History arthritis with orthopedic surgery Never smoker GI prophylaxis DVT prophylaxis Full Code Plan Continue patient on oral augmentin Continue IV lasix with strict intake and output Continue bronchodilators Increase hydralazine Continue all other supportive care The impression and plan of care has been dictated by Magaly Mitchell, Nurse Practitioner as directed. Dr. Qamar MD I have performed a history and physical examination and medical decision making of this patient, discussed the same with the dictator, and agree with the dictators assessment and plan as written, documented as a scribe. Based on total visit time, I have performed more than 50% of this visit. Objective - Vital Signs Vital signs: Vital Signs Temp 97.9 F 03/21/22 14:00 Pulse 76 03/21/22 15:36 Resp 16 03/21/22 14:00 BP 163/66 03/21/22 14:00 Pulse Ox 98 03/21/22 14:00 FiO2 Intake & Output 03/20/22 03/21/22 03/21/22 18:59 06:59 18:59 Intake Total 300 Balance 300 Intake: Oral 300 Other: # Voids 3 2 - Labs CBC & Chem 7: 03/19/22 17:13 03/21/22 04:09 Labs: Abnormal Lab Results - Last 24 Hours (Table) 03/21/22 Range/Units 04:09 BUN 31.7 H (9.0-27.0) mg/dL Est GFR (CKD-EPI)NonAf 53.9 L (60.0-200.0) BUN/Creatinine Ratio 31.70 H (12.00-20.00) Ratio Glucose 154 H (70-110) mg/dL Microbiology - Last 24 Hours (Table) 03/19/22 17:26 Blood Culture - Preliminary Blood No Growth after 24 hours Assessment and Plan Time with Patient: Less than 30
[2022-03-21] MEDS ORDERED: AZITHROMYCIN 500 MG TAB PO SCH (17:00)
[2022-03-21] MEDS: BENZONATATE 100 MG CAP PO SCH ×2 (18:06→21:03)
[2022-03-21] MEDS: BUDESONIDE 0.5 MG/2 ML NEBU INHALATION SCH (20:18)
[2022-03-21] MEDS ORDERED: hydrALAZINE HCL 50 MG TAB PO SCH (21:00)
[2022-03-22] MEDS: PANTOPRAZOLE 40 MG TABLET PO SCH (06:13)
[2022-03-22] MEDS: IPRATROPIUM-ALBUTEROL 3 ML NEB INHALATION SCH ×2 (07:29→11:53)
[2022-03-22] MEDS: BUDESONIDE 0.5 MG/2 ML NEBU INHALATION SCH (07:29)
--- NOTE | 2022-03-22 08:04 | XR ---
EXAMINATION TYPE: XR chest 2V DATE OF EXAM: 03/22/2022 COMPARISON: 03/19/2022 HISTORY: 76-year-old female shortness of breath, follow-up TECHNIQUE: PA and lateral views FINDINGS: Heart mildly enlarged. Diffuse interstitial density persists but the more patchy opacities on the rig ht shows improvement. No sizable pleural effusion on the lateral view. Mild hyperinflation. IMPRESSION: Mild cardiomegaly and residual interstitial opacities, however, improving compared to 03/19/2022.
[2022-03-22] MEDS: MULTIVITAMINS, THERA 1 EACH TAB PO SCH (08:48)
[2022-03-22] MEDS: BENZONATATE 100 MG CAP PO SCH (08:48)
[2022-03-22] MEDS: CALCIUM CARBONATE 500 MG CHEWABLE PO SCH (08:48)
[2022-03-22] MEDS: LOSARTAN 50 MG TAB PO SCH (08:48)
[2022-03-22] MEDS: VERAPAMIL SR 120 MG TABLET.ER PO SCH (08:49)
[2022-03-22] MEDS: CHOLECALCIFEROL 10 MCG (400 IU) TABLET PO SCH (08:49)
[2022-03-22] MEDS: HEPARIN SODIUM,PORCINE/PF 5,000 UNIT/0.5 ML SYRINGE SQ SCH (08:49)
[2022-03-22] MEDS ORDERED: AZITHROMYCIN 500 MG TAB PO SCH (09:00)
[2022-03-22] MEDS ORDERED: hydrALAZINE HCL 25 MG TAB PO SCH (09:00)
[2022-03-22] MEDS: FUROSEMIDE 10 MG/ML 2 ML VIAL IV SCH (10:42)
[2022-03-22] MEDS: methylPREDNISolone SOD SUCCI 40 MG/ML 1 ML VIAL IV SCH (10:42)
[2022-03-22 14:36] VITALS: BP 179/69; PULSE 94; RESP 21; TEMP 98
--- NOTE | 2022-03-23 23:00 | P.DS ---
Providers Date of admission: 03/19/22 19:39 Attending physician: Jaelyn Foote Primary care physician: Davion Clement [place] [facility] Course: Final Diagnosis Acute hypoxic respiratory failure multifocal secondary to acute asthma exacerbation, heart failure on 2l Nasal cannula Acute asthma exacerbation secondary to tracheobronchitis, procalcitonin is 0.12, community acquired pneumonia is ruled out. Acute diastolic heart failure, mild continue IV lasix Hypertension maintained on multiple blood pressure medications including hydro- Diuril, verapamil, hydralazine, candesartan Prior history of hyponatremia monitor closely BPH Hyperlipidemia History arthritis with orthopedic surgery Never smoker Full Code Discharge Disposition Patient is stable for discharge home. She has been discharged on pulmicort inhaler in addition to albuterol. Hydrochlorothiazide has been discontinued and she has been started on oral lasix 20 mg daily. Hydralazine has been increased to 75 mg twice a day. Recommended to follow up with her primary care doctor in 1 to 2 days. She has an appointment set up on April [address] Whiteside for further evaluation and recommendations secondary to her asthma. Hospital Course This is a 76-year-old female with medical history of asthma, hypertension, arthritis. She is maintained on multiple blood pressure medications. Asthma is managed by her primary provider, states she was diagnosed in her 70s about 5 years after care home. 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 States her asthma is controlled with albuterol inhaler however has had to use inhaler more frequently. Feels her asthma is exacerbated by respiratory illness. Patient presented to the hospital with complaints of a cough that has been ongoing for the last 3 weeks. She reports shortness of breath, and low grade fever 99. Had a few episodes of diarrhea. Currently cough is dry she states she is unable to expectorate. Denies chest pain, denies leg swelling. She was evaluated at the urgent care was sent to the ER for further evaluation patient states she had a chest xray completed there that was supspicious for pneumonia. Chest x-ray at this facility does show a right upper lobe and right middle lobe pneumonia which is new compared to old exam there is minimal pulmonary congestion possible heart failure. EKG shows ectopic atrial bradycardia. She has no white count on admission, doesn't appear clinically dehydrated, her blood work is essentially unremarkable, her proBNP is 1760 which is below the normal threshold for age. Troponin negative. She is negative for RSV, influenza A/B and Covid. Patient is admitted for acute asthma exacerbation, she is started on oral antibiotics and steroids, requiring 2 liters of oxygen via nasal cannula. Chest xray was personally reviewed and appears more as heart failure than pneumonia, her procalcitonin level was found to be 0.12. Patient was treated with IV lasix, and continued on oral azithromycin and IV steroids. Echocardiogram showing normal left ventricular dimension and systolic function. Moderate tricuspid regurgitation, Severe pulmonary hypertension. She clinically responded well to the IV lasix, and also was started on pulmicort. Lungs have cleared and she was able to be weaned off oxygen and maintaining saturations on room air. Patient will be discharged home. 03/22/2022 Patient is evaluated today sitting up in chair. She reports tolerating increased activity. Able to weaned off of oxygen and on room air now. Denies chest pain, chest pressure. No shortness of breath at rest, has some mild shortness of breath with exertion but overall improving. Cough has improved. Lungs are clear today, wheezing has resolved which was mostly in the right posterior lung base. S1 S2 auscultated and abdomen is soft and nontender. Focal neurological exam is negative. She is alert x 3. Hydralazine was increased to 75 mg twice a day as systolic blood pressure was maintained in the 160s. Patient is scheduled to see Dr. Whiteside in follow up and recommended to see Dr. Clement in 1 to 2 days. Discharged with [facility] as well. Please see medication reconciliation for a list of current medication. Thank you for allowing us to participate in the care of this patient. The impression and plan of care has been dictated by Magaly Mitchell, Nurse Practitioner as directed. Dr. Qamar MD I have performed a history and physical examination and medical decision making of this patient, discussed the same with the dictator, and agree with the dictators assessment and plan as written, documented as a scribe. Based on total visit time, I have performed more than 50% of this visit. Patient Condition at Discharge: Stable Plan - Discharge Summary Discharge Rx Participant: Yes New Discharge Prescriptions: New Benzocaine/Menthol Lozeng [Cepacol lozenge] 1 each MUCOUS MEM Q4HR PRN lozenge PRN Reason: Sore Throat Loratadine [Claritin] 5 mg PO DAILY #30 tab Pantoprazole [Protonix] 40 mg PO AC-BRKFST #15 tab Budesonide [Pulmicort] 0.5 mg INHALATION RT-BID #1 each Benzonatate [Tessalon Perles] 100 mg PO TID PRN 7 Days #21 cap PRN Reason: Cough Azithromycin [Zithromax] 500 mg PO DAILY 1 Days #1 tab Furosemide [Lasix] 20 mg PO DAILY #30 tab Meclizine [Antivert] 12.5 mg PO TID PRN tab PRN Reason: Vertigo hydrALAZINE HCL [Apresoline] 75 mg PO BID #60 tab Albuterol Nebulized [Ventolin Nebulized] 2.5 mg INHALATION Q6H PRN 6 Days #75 ml PRN Reason: Shortness Of Breath Or Wheezing Continue Multivit-Min/FA/Lycopene/Lut [Centrum Silver Tablet] 1 tab PO DAILY Albuterol Sulfate [Albuterol Sulfate Hfa] 2 puff INHALATION RT-QID PRN PRN Reason: Shortness Of Breath Cholecalciferol [Vitamin D3 (10 Mcg = 400 Iu)] 10 mcg PO DAILY Calcium Carbonate [Calcium] 1,200 mg PO DAILY Verapamil HCl [Verapamil ER] 120 mg PO DAILY Candesartan Cilexetil [Atacand] 32 mg PO DAILY Discontinued hydrALAZINE HCL [Apresoline] 25 mg PO BID hydroCHLOROthiazide [Hydrodiuril] 25 mg PO DAILY Discharge Medication List Multivit-Min/FA/Lycopene/Lut [Centrum Silver Tablet] 1 tab PO DAILY 09/27/14 [History] Calcium Carbonate [Calcium] 1,200 mg PO DAILY 06/25/20 [History] Candesartan Cilexetil [Atacand] 32 mg PO DAILY 06/25/20 [History] Cholecalciferol [Vitamin D3 (10 Mcg = 400 Iu)] 10 mcg PO DAILY 06/25/20 [History] Verapamil HCl [Verapamil ER] 120 mg PO DAILY 06/25/20 [History] Albuterol Sulfate [Albuterol Sulfate Hfa] 2 puff INHALATION RT-QID PRN 03/19/22 [History] Albuterol Nebulized [Ventolin Nebulized] 2.5 mg INHALATION Q6H PRN 6 Days #75 ml 03/22/22 [Rx] Azithromycin [Zithromax] 500 mg PO DAILY 1 Days #1 tab 03/22/22 [Rx] Benzocaine/Menthol Lozeng [Cepacol lozenge] 1 each MUCOUS MEM Q4HR PRN lozenge 03/22/22 [Rx] Benzonatate [Tessalon Perles] 100 mg PO TID PRN 7 Days #21 cap 03/22/22 [Rx] Budesonide [Pulmicort] 0.5 mg INHALATION RT-BID #1 each 03/22/22 [Rx] Furosemide [Lasix] 20 mg PO DAILY #30 tab 03/22/22 [Rx] Loratadine [Claritin] 5 mg PO DAILY #30 tab 03/22/22 [Rx] Meclizine [Antivert] 12.5 mg PO TID PRN tab 03/22/22 [Rx] Pantoprazole [Protonix] 40 mg PO AC-BRKFST #15 tab 03/22/22 [Rx] hydrALAZINE HCL [Apresoline] 75 mg PO BID #60 tab 03/22/22 [Rx] Follow up Appointment(s)/Referral(s): Anay Whiteside MD [STAFF PHYSICIAN] - 04/04/22 2:15 pm [facility], [NON-STAFF] - 1-2 Days Davion Clement DO [Primary Care Provider] - 1-2 days Ambulatory/Diagnostic Orders: Basic Metabolic Panel [LAB.AMB] Time Frame: 3 Days, Location: None Selected Patient Instructions/Handouts: Bronchiolitis (DC), Bronchospasm (ED) Activity/Diet/Wound Care/Special Instructions: Continue albuterol as needed for shortness of breath or wheezing. Ampules for nebulizer have been refilled. Continue on pulmicort inhaler twice a day Continue azithromycin for 1 more day. Follow up with pulmonary services for further evaluation, an appointment with Dr. Whiteside has been made on April 04 Recommend to follow up with Dr. Govea on discharge as well Continue on increased dose of hydralazine and monitor blood pressure. Can decrease dosing down to 50 mg twice a day if blood pressure remains in the 140s systolic. Stop hydrochlorothiazide and begin taking lasix 20 mg po daily Discharge Disposition: HOME WITH HOME HEALTH SERVICES
== END 2022-03-22 15:36 | disposition home health service (06) | DRG 291 ==
LOC: EC 15:27 → 4SSUR 19:39
PROVIDERS: ADMIT Internal Medicine; ATTEND Internal Medicine
DX: I11.0 Hypertensive heart disease with heart failure (principal); I50.31 Acute diastolic (congestive) heart failure; J96.01 Acute respiratory failure with hypoxia; J18.9 Pneumonia, unspecified organism; J45.901 Unspecified asthma with (acute) exacerbation; I27.20 Pulmonary hypertension, unspecified; I07.1 Rheumatic tricuspid insufficiency; E78.5 Hyperlipidemia, unspecified; R00.1 Bradycardia, unspecified; M19.90 Unspecified osteoarthritis, unspecified site; R42 Dizziness and giddiness; R19.7 Diarrhea, unspecified; R51.9 Headache, unspecified; Z20.822 Contact with and (suspected) exposure to COVID-19; Z96.653 Presence of artificial knee joint, bilateral; Z79.899 Other long term (current) drug therapy; Z91.040 Latex allergy status; Z91.048 Other nonmedicinal substance allergy status; Z91.013 Allergy to seafood; Z88.5 Allergy status to narcotic agent; Z88.8 Allergy status to other drugs, medicaments and biological substances
CPT/HCPCS: 36415; 71046; 80048; 80053; 83605; 83880; 84145; 84484; 85025; 85610; 85730; 87040; 87449; 87636; 93005; 93306; 94640; 94760; 96374; 96375; 96376; 99285

== ENCOUNTER 2023-04-17 05:40 | Day surgery (SDC) | payer MEDICARE ==
[2023-04-17] MEDS ORDERED: SODIUM CHLORIDE 0.9% 500 ML 500 ML IV ONE (06:14)
[2023-04-17] MEDS ORDERED: fentaNYL (PF) 50 MCG/ML 2 ML AMP ONE (06:19)
[2023-04-17 06:23] VITALS: RESP 16; TEMP 97.1
[2023-04-17] MEDS ORDERED: BENZOCAINE SPRAY 1 CAN TOPICAL ONE (06:45)
[2023-04-17] MEDS ORDERED: MIDAZOLAM 2 MG/2 ML VIAL IVP ONE (06:45)
[2023-04-17] MEDS ORDERED: fentaNYL (PF) 50 MCG/ML 2 ML AMP IVP ONE (06:58)
--- NOTE | 2023-04-17 07:07 | P.PCN ---
Date of Procedure: 04/17/23 Description of Procedure: Indication: Mitral regurgitation Procedure Description: After explaining the procedure to the patient, it's risk and complications, blood pressure, heart rate and O2 saturation were monitored. The throat was sprayed with Cetacaine. Patient received 2 mg intravenous Versed, 50 mcg intravenous fentanyl. The probe was introduced into the esophagus without difficulty. Images were obtained. Following that, the probe was removed. There was no immediate complication. Findings: Left atrial size is mildly dilated, left atrial appendage is normal. Left ventricular size and systolic function are normal. The aortic valve, tricuspid and pulmonic valve are normal. The mitral valve revealed mild calcifications of the leaflets. Descending thoracic aorta appears to be normal. Contrast bubble study revealed no shunting across the intra-atrial septum with Valsalva maneuver. There was no pericardial effusion. Doppler: Pulse wave and color Doppler were obtained, and revealed mild tricuspid and aortic regurgitation with moderate central mitral regurgitation. There was no shunting across the interatrial septum Conclusion: 1. Mildly dilated left atrium with normal appearance of the left atrial appendage 2. Normal left ventricle size and systolic function 3. Moderate mitral regurgitation 4. Mild tricuspid and aortic regurgitation 5. No shunting across the intra-atrial septum
[2023-04-17] MEDS ORDERED: SODIUM CHLORIDE 0.9% 1,000 ML IV SCH (07:15)
[2023-04-17 10:02] VITALS: BP 155/67; PULSE 56
== END 2023-04-17 08:54 | disposition home or self-care (01) ==
LOC: CATHCVL 05:40
PROVIDERS: ATTEND Internal Medicine Interventional Cardiology
DX: I08.0 Rheumatic disorders of both mitral and aortic valves (principal); I10 Essential (primary) hypertension; Z88.6 Allergy status to analgesic agent; Z79.899 Other long term (current) drug therapy
CPT/HCPCS: 93312; 93320; 93325; J2250; J3010

== ENCOUNTER → 2023-05-22 | Outpatient (CLI) | payer MEDICARE ==
[2023-05-22 14:14] LABS: African American GFR (CKD) >90 (>60 ml/min/1.73 sqM); Anion Gap 10 mmol/L; Blood Urea Nitrogen 21 mg/dL (7-17); Calcium 9.6 mg/dL (8.4-10.2); Carbon Dioxide 27 mmol/L (22-30); Chloride 99 mmol/L (98-107); Glucose 88 mg/dL (74-99); Non-African American GFR(CKD) 84 (>60 ml/min/1.73 sqM); Potassium 4.6 mmol/L (3.5-5.1); Sodium 136 mmol/L (137-145)
== END | disposition home or self-care (01) ==
LOC: LABWHC1 13:11
PROVIDERS: ATTEND Nurse Practitioner Adult Health
DX: I10 Essential (primary) hypertension (principal)
CPT/HCPCS: 36415; 80048

== ENCOUNTER → 2024-01-07 | Outpatient (CLI) | payer MEDICARE ==
[2024-01-07 21:38] LABS: ALT 10 U/L (8-44); AST 26 U/L (13-35); Albumin 4.1 g/dL (3.8-4.9); Albumin/Globulin Ratio 1.41 Ratio (1.60-3.17); Alkaline Phosphatase 88 U/L (41-126); BUN/Creat Ratio 15.12 Ratio (12.00-20.00); Blood Urea Nitrogen 12.1 mg/dL (9.0-27.0); Calcium 9.7 mg/dL (8.7-10.3); Carbon Dioxide 25.6 mmol/L (21.6-31.8); Chloride 95 mmol/L (96-109); Globulin 2.9 g/dL (1.6-3.3); Glucose 101 mg/dL (70-110); Sodium 133 mmol/L (135-145); Total Bilirubin 0.4 mg/dL (0.3-1.2)
[2024-01-08 00:33] LABS: NT-Pro-B-Type Natriuretic Pept 1538 pg/mL (0-450)
== END | disposition home or self-care (01) ==
LOC: LABWHC1 09:01
PROVIDERS: ATTEND Internal Medicine Interventional Cardiology
DX: R06.02 Shortness of breath (principal)
CPT/HCPCS: 36415; 80053; 83880

== ENCOUNTER → 2024-04-14 | Day surgery (SDC) | payer MEDICARE ==
[~2024-04-14] MED LIST: ALPRAZolam 0.25 MG TAB PO PRN; ALPRAZolam 0.5 MG TAB PO PRN; METOPROLOL SUCCINATE (ER) 50 MG TAB.ER.24H PO SCH; NITROGLYCERIN SL TABS 0.4 MG TAB SUBLINGUAL PRN; RX INFO: IV CONTRAST WAS GIVEN 1 EACH MISC MISCELLANE PRN; SODIUM CHLORIDE 0.9% 1,000 ML IV SCH; hydrALAZINE HCL 50 MG TAB PO SCH
[2024-04-14 08:07] VITALS: TEMP 98.1
[2024-04-14] MEDS: SODIUM CHLORIDE 0.9% 1,000 ML in EMPTY BAG 1 BAG IV SCH (08:10)
[2024-04-14] MEDS: IV FLUID CONTINUATION 1,000 ML IV ONE ×2 (08:11→09:15)
[2024-04-14] MEDS: ASPIRIN 325 MG TAB PO ONE (08:20)
[2024-04-14] MEDS: BENZOCAINE SPRAY 1 EACH MM ONE (09:10)
[2024-04-14] MEDS: MIDAZOLAM 2 MG/2 ML VIAL IVP ONE (09:14)
[2024-04-14] MEDS: fentaNYL (PF) 50 MCG/ML 2 ML AMP IVP ONE (09:14)
[2024-04-14] MEDS: HEPARIN SODIUM,PORCINE 10,000 UNIT in SODIUM CHLORIDE 0.9% 1,000 ML IRRIGATION PRN (09:22)
[2024-04-14] MEDS: HEPARIN SODIUM,PORCINE (1 ML) 2,500 UNIT in SODIUM CHLORIDE 0.9% 250 ML IRRIGATION PRN (09:22)
--- NOTE | 2024-04-14 09:31 | P.PCN ---
Date of Procedure: 04/14/24 Description of Procedure: Indication: Mitral regurgitation Procedure Description: After explaining the procedure to the patient, it's risk and complications, blood pressure, heart rate and O2 saturation were monitored. The throat was sprayed with Cetacaine. Patient received 2 mg intravenous Versed, 50 mcg intravenous fentanyl. The probe was introduced into the esophagus without difficulty. Images were obtained. Following that, the probe was removed. There was no immediate complication. Findings: Left atrial appendage is normal, left ventricular size and systolic function are normal. The aortic valve is a tricuspid valve with mild calcification and preserved opening. Mild thickening of the mitral valve leaflet was noted. The tricuspid valve appears to be normal. Descending thoracic aorta appears to be normal. No pericardial effusion was noted. Contrast bubble study revealed no shunting across the interatrial septum. Doppler: Pulse wave and color Doppler were obtained, and revealed moderate mitral and tricuspid regurgitation, the estimated right ventricular systolic pressure is 60 to 68 mmHg. Mild aortic regurgitation was noted. No shunting was noted by color Doppler study. Conclusion: 1. Normal ventricular size and systolic function 2. Normal appearance of the left atrial appendage 3. Moderate mitral regurgitation 4. Moderate tricuspid regurgitation with moderate to severe pulmonary hypertension 5. Mild aortic regurgitation 6. No shunting across the interatrial septum. Duration of sedation: 15 minutes.
[2024-04-14] MEDS: LIDOCAINE 1% INJ 10MG/ML (20 ML MDV) SQ ONE (09:36)
[2024-04-14] MEDS: IOPAMIDOL-370 100ML BTL INJ ONE (10:17)
[2024-04-14 10:33] LABS: O2 Sat Blood Gas 66.9 %
[2024-04-14 10:36] LABS: O2 Sat Blood Gas 91.9 %
--- NOTE | 2024-04-14 10:47 | P.CARDCATH ---
Date of Procedure: 04/14/24 Description of Procedure: Cardiac Catheterization: The patient is an 78-year-old female with known history of hypertension who has been complaining of progressive dyspnea. Her echocardiogram revealed moderate severe mitral and tricuspid regurgitation with moderate severe pulmonary hypertension. Recommendations were made regarding cardiac catheterization, the risks and the complications were discussed with the patient who is in full understanding and agreement. Procedure Description: Patient was brought to aquatic lab[facility] in fasting semi-sedated state after receiving Fentanyl and Benadryl achieiving moderate conscious sedated state. Using Xylocaine Anesthesia and micropuncture technique and modified Seldinger technique, a 6-Palauan sheath was introduced in the right femoral artery . A 6 Pal[place] sheath was introduced in the right femoral vein. Attempt initially to cannulate the right radial artery were unsuccessful. Right heart catheterization was performed using the [place]-Stephen catheter. Multiple samples and pressures were obtained. Cardiac output by thermodilution was calculated. Subsequently, selective coronary angiography was performed using a 6-Palauan 4 bend Hemalatha catheter. Multiple views of the coronary artery including hemiaxial views were obtained. The 6 [place] pigtail catheter was used to cross the aortic valve and LVEDP was calculated. A 30 degree KEENE view of the right ventricle was obtained. Following that, catheter and sheath were removed. Hemostasis was obtained with deployment of an Angio-Seal and compression of the right femoral vein.. There was no immediate complication. Patient was returned to room in stable condition. Findings: Left main: This is a large size vessel, bifurcating into LAD and left circumflex, left main has no obstructive disease LAD: This is a large size vessel, reaching to the apex, giving rise to a large proximal diagonal branch. The LAD and its branches have no obstructive disease Left circumflex: This is a large nondominant vessel giving rise to 2 obtuse marginal branch that have no obstructive disease. The vessel is tortuous. RCA: This is a large dominant vessel, tortuous in the midsegment, bifurcating distally to PDA and PLV. The RCA and its branches have no obstructive disease Left Ventriculogram: Performed in the 30 degree KEENE view and revealed a normal left systolic . Size and systolic function. There was 2+ mitral regurgitation. Calcification of the abdominal aorta was noted. Hemodynamics: Pulmonary artery saturation 67% right atrial saturation 72% femoral artery saturation 92% cardiac output by thermodilution 6.6 L/min with an index of 3.4 L/min. Pulmonary artery systolic pressure 66 with a diastolic of 24 of 44 mmHg. Pulmonary capillary wedge pressure A-wave of 20 V wave of 32 with a mean of 26. Right ventricular systolic pressure 62 with an end-diastolic of 8 mmHg. Right atrium A wave of 9 V wave of 8 with a mean of 7 mmHg Mercury. There was no gradient across aortic valve, LVEDP was 10-14 mmHg Conclusion: 1. Normal coronary arteries 2. Right dominance 3. Normal left ventricular size and systolic function with 2+ mitral regurgitation 4. Moderate severe pulmonary hypertension Recommendations: The patient's pulmonary hypertension is not secondary to valvular disease. She will be closely followed up for further evaluation. The findings and the recommendations were discussed with the patient and the family and they were in full understanding and agreement. Duration of sedation is 44 minutes.
[2024-04-14 15:20] VITALS: RESP 16
[2024-04-14 15:21] VITALS: BP 164/75; PULSE 59
== END | disposition home or self-care (01) ==
LOC: CATHCVL 07:14
PROVIDERS: ATTEND Internal Medicine Interventional Cardiology
DX: I08.3 Combined rheumatic disorders of mitral, aortic and tricuspid valves (principal); I27.20 Pulmonary hypertension, unspecified; M19.90 Unspecified osteoarthritis, unspecified site; I10 Essential (primary) hypertension; Z87.891 Personal history of nicotine dependence; Z79.899 Other long term (current) drug therapy; Z79.82 Long term (current) use of aspirin; Z88.6 Allergy status to analgesic agent
CPT/HCPCS: 99152; 99153; 93312; 93320; 93325; 93460; 85018; 82810; C1760; C1769 ×3; C1894 ×2; C1751; J2250; J1644 ×2; J2003; J3010; Q9967